=== PATIENT | male | born 1985 | race Caucasian/White ===

== ENCOUNTER 2020-07-21 12:34 | Inpatient (IN) | payer BC, OTHER ==
[2020-07-21] MEDS ORDERED: SODIUM CHLORIDE 0.9% 1,000 ML IV STA (13:22)
[2020-07-21] MEDS ORDERED: LORazepam 2 MG/ML INJ IV STA (13:22)
--- NOTE | 2020-07-21 13:25 | ED ---
General Adult HPI - General Chief complaint: Seizure Stated complaint: seizures Time Seen by Provider: 07/21/20 13:00 Source: patient, family, RN notes reviewed Mode of arrival: wheelchair Limitations: no limitations - History of Present Illness Initial comments: Patient is a pleasant 35-year-old male presenting to the emergency department following seizure. Incident occurred this morning. Patient did recently stop drinking alcohol, last drink was 2 days ago. Patient states he is trying to cut back. No history of previous seizures. Father is present and states seizures or 2 or 3 and lasted up to 15 or 20 minutes. Patient had generalized shaking and was unresponsive. Patient feels a little bit restless and shaky at this time otherwise has no complaints. Patient denies any injury other than biting his tongue. - Related Data Allergies Allergy/AdvReac Type Severity Reaction Status Date / Time No Known Allergies Allergy Verified 07/21/20 12:58 Review of Systems ROS Statement: Those systems with pertinent positive or pertinent negative responses have been documented in the HPI. ROS Other: All systems not noted in ROS Statement are negative. Constitutional: Denies: fever Eyes: Denies: eye pain ENT: Denies: ear pain Respiratory: Denies: cough Cardiovascular: Denies: chest pain Endocrine: Denies: fatigue Gastrointestinal: Denies: abdominal pain Genitourinary: Denies: dysuria Musculoskeletal: Denies: back pain Skin: Denies: rash Neurological: Reports: as per HPI. Denies: weakness Past Medical History Past Medical History: Hypertension History of Any Multi-Drug Resistant Organisms: None Reported Past Surgical History: No Surgical Hx Reported Past Psychological History: Anxiety Smoking Status: Current every day smoker Past Alcohol Use History: Daily Past Drug Use History: None Reported General Exam Limitations: no limitations General appearance: alert, in no apparent distress, other (Patient does have mild resting tremor) Head exam: Present: normocephalic Eye exam: Present: normal appearance, PERRL, EOMI. Absent: nystagmus ENT exam: Present: other (Right-sided tongue abrasions) Neck exam: Present: normal inspection. Absent: tenderness Respiratory exam: Present: normal lung sounds bilaterally Cardiovascular Exam: Present: tachycardia GI/Abdominal exam: Present: soft. Absent: tenderness Extremities exam: Present: normal inspection, full ROM. Absent: tenderness Neurological exam: Present: alert, CN II-XII intact. Absent: motor sensory deficit Expanded Neurological exam: Present: protecting the airway Patient oriented to: Present: person, place, time Speech: Present: fluid speech Cranial nerves: EOM's Intact: Normal Motor strength exam: RUE: 5, LUE: 5, RLE: 5, LLE: 5 Eye Response: (4) open spontaneously Motor Response: (6) obeys commands Verbal Response: (5) oriented Psychiatric exam: Present: normal affect, normal mood Skin exam: Present: normal color Course Vital Signs 07/21/20 12:53 Temperature 98.9 F Pulse Rate 109 H Respiratory 18 Rate Blood Pressure 126/78 O2 Sat by Pulse 97 Oximetry EKG Findings - EKG Comments: EKG Findings:: Sinus tachycardia 102. MD 126. QRS 100. QT 446. QTc 581. Normal axis. Incomplete right bundle-branch block. Nonspecific ST-T. Medical Decision Making - Medical Decision Making Patient reevaluated and updated. Dr. Mg has been paged for admission covering for Dr. jennings. - Lab Data Result diagrams: 07/21/20 13:41 07/21/20 13:41 Lab Results 07/21/20 07/21/20 Range/Units 13:41 13:41 WBC 8.1 (3.8-10.6) k/uL RBC 4.25 L (4.30-5.90) m/uL Hgb 14.4 (13.0-17.5) gm/dL Hct 40.5 (39.0-53.0) % MCV 95.2 (80.0-100.0) fL MCH 33.8 (25.0-35.0) pg MCHC 35.5 (31.0-37.0) g/dL RDW 14.2 (11.5-15.5) % Plt Count 107 L (150-450) k/uL MPV 8.7 Neutrophils % 79 % Lymphocytes % 12 % Monocytes % 4 % Eosinophils % 2 % Basophils % 2 % Neutrophils # 6.4 (1.3-7.7) k/uL Lymphocytes # 1.0 (1.0-4.8) k/uL Monocytes # 0.4 (0-1.0) k/uL Eosinophils # 0.1 (0-0.7) k/uL Basophils # 0.2 (0-0.2) k/uL Sodium 136 L (137-145) mmol/L Potassium 2.4 L* (3.5-5.1) mmol/L Chloride 102 (98-107) mmol/L Carbon Dioxide 26 (22-30) mmol/L Anion Gap 8 mmol/L BUN 5 L (9-20) mg/dL Creatinine 0.60 L (0.66-1.25) mg/dL Est GFR (CKD-EPI)AfAm >90 (>60 ml/min/1.73 sqM) Est GFR (CKD-EPI)NonAf >90 (>60 ml/min/1.73 sqM) Glucose 124 H (74-99) mg/dL Calcium 9.7 (8.4-10.2) mg/dL Magnesium 1.3 L (1.6-2.3) mg/dL Total Bilirubin 1.0 (0.2-1.3) mg/dL AST 108 H (17-59) U/L ALT 65 H (4-49) U/L Alkaline Phosphatase 100 (38-126) U/L Total Protein 6.7 (6.3-8.2) g/dL Albumin 4.2 (3.5-5.0) g/dL Serum Alcohol <10 mg/dL - Radiology Data Radiology results: report reviewed (Computed tomography scan of the brain shows no acute abnormality) Disposition Clinical Impression: New onset seizure, Hypokalemia, Hypomagnesemia Disposition: ADMITTED IP TO THIS [facility] Is patient prescribed a controlled substance at d/c from ED?: No Referrals: Mary Chacon MD [Primary Care Provider] - 1-2 days Decision Time: 14:32
[2020-07-21 13:55] LABS: Basophils # (A) 0.2 k/uL (0-0.2); Basophils % (A) 2 %; Eosinophils # (A) 0.1 k/uL (0-0.7); Eosinophils % (A) 2 %; HCT 40.5 % (39.0-53.0); HGB 14.4 gm/dL (13.0-17.5); Lymphocytes % (A) 12 %; MCH 33.8 pg (25.0-35.0); MCHC 35.5 g/dL (31.0-37.0); MCV 95.2 fL (80.0-100.0); Mean Platelet Volume 8.7; Monocytes # (A) 0.4 k/uL (0-1.0); Monocytes % (A) 4 %; Neutrophils # (A) 6.4 k/uL (1.3-7.7); Neutrophils % (A) 79 %; Platelet Count 107 k/uL (150-450); RBC 4.25 m/uL (4.30-5.90); RDW 14.2 % (11.5-15.5); WBC 8.1 k/uL (3.8-10.6)
[2020-07-21 14:06] LABS: ALT 65 U/L (4-49); AST 108 U/L (17-59); African American GFR (CKD) >90 (>60 ml/min/1.73 sqM); Albumin 4.2 g/dL (3.5-5.0); Alcohol <10 mg/dL; Alkaline Phosphatase 100 U/L (38-126); Anion Gap 8 mmol/L; Blood Urea Nitrogen 5 mg/dL (9-20); Calcium 9.7 mg/dL (8.4-10.2); Carbon Dioxide 26 mmol/L (22-30); Chloride 102 mmol/L (98-107); Glucose 124 mg/dL (74-99); Magnesium 1.3 mg/dL (1.6-2.3); Non-African American GFR(CKD) >90 (>60 ml/min/1.73 sqM); Sodium 136 mmol/L (137-145); Total Protein 6.7 g/dL (6.3-8.2)
[2020-07-21 14:08] LABS: Potassium 2.4 mmol/L (3.5-5.1)
[2020-07-21] MEDS ORDERED: MAGNESIUM SULFATE-D5W PMX 1 GM in DEXTROSE/WATER 1 100ML.BAG IVPB ONE (14:12)
[2020-07-21] MEDS ORDERED: Potassium Replacement Protocol 1 EACH MISC MISCELLANE PRN (14:13)
[2020-07-21] MEDS ORDERED: POTASSIUM CHLORIDE ER 20 MEQ TAB.ER PO STA (14:13)
[2020-07-21] MEDS ORDERED: POTASSIUM CHLORIDE 20 MEQ in WATER FOR INJECTION 1 100ML.BAG IVPB STA (14:14)
--- NOTE | 2020-07-21 14:18 | CT ---
EXAMINATION TYPE: CT brain wo con DATE OF EXAM: 07/21/2020 COMPARISON: None HISTORY: seizure activity Unenhanced CT of the brain was performed. The ventricles, basal cisterns and sulci overlying the cerebral convexities demonstrate a normal appe arance. There is no evidence for intracranial hemorrhage or sulcal effacement. No mass effects are seen. Osseous calvarium is intact. If symptoms persist consider MRI as clinically warranted. IMPRESSION: 1. No acute intracranial process is seen at this time.
[2020-07-21] MEDS: MAGNESIUM OXIDE 400 MG TAB PO SCH (14:31)
[2020-07-21] MEDS ORDERED: LORazepam 2 MG/ML INJ IV PRN (14:33)
[2020-07-21] MEDS ORDERED: NALOXONE 0.4 MG/ML 1 ML VIAL IV PRN (14:33)
[2020-07-21] MEDS: SODIUM CHLORIDE 0.9% 1,000 ML IV SCH (14:44)
[2020-07-21] MEDS: LORazepam 2 MG/ML INJ IV PRN (15:17)
[2020-07-21] MEDS: THIAMINE 100 MG TAB PO SCH (18:19)
--- NOTE | 2020-07-21 19:46 | P.CNNES ---
History of Present Illness Consult date: 07/21/20 Requesting physician: Rashawn Valadez Reason for Consult: Seizure History of Present Illness: Patient is a 35-year-old male came to the hospital today at 12:34 PM for new onset seizure. Patient states that he has history of alcoholism at least for the last 2 years that he has been drinking heavily. He would drink 4 beers to a pint of whiskey, fire ball or vodka. He was drinking almost every day for the last 2 years although previously he used to drink " here and there", "hit or miss". Patient states that lately he has been trying to cut back on his alcoholism. He had last drink about 1-2 days before his seizure. Patient also states that he was taking lot of [id number] sleeping aids, about 6-7 pills a day. Patient states that he was drinking alcohol in sleeping aids to help him sleep better. Patient was apparently asleep, when he had seizures. Patient father has mentioned that he had about 2 seizures, lasting up to 15-20 minutes. This was a grand mal seizure, in which he bit his tongue quite hard. No loss of control of urine. Patient was brought to the hospital. Vital signs arrival but pressure 126/78, pulse rate 109, temperature 98.9. CT head showed no acute process. EKG shows sinus tachycardia, incomplete right bundle branch block. Blood test shows normal Chem-7, sodium 136 potassium 2.4, renal functions normal, hepatic panel with AST elevated 108, ALT 65. Serum alcohol level negative. Patient does take hydroxyzine, amlodipine 10 mg, metoprolol 100 mg twice a day and losartan 25 mg twice a day. Patient denies any previous history of seizures. He states that he has smoked 1-1/2 pack per day since he was age 14-15 years old. He denies any drug use. He does abuse OTC sleeping aids. Review of Systems Denies headache, denies loss of vision hoarseness sore throat. His tongue is very painful from laceration. No chest pain, shortness of breath, wheezing or cough. Denies abdominal pain nausea vomiting. Patient did bruise his knee. Past Medical History Past Medical History: Hypertension History of Any Multi-Drug Resistant Organisms: None Reported Past Surgical History: No Surgical Hx Reported Past Psychological History: Anxiety Smoking Status: Current every day smoker Past Alcohol Use History: Daily Past Drug Use History: None Reported Medications and Allergies Home Medications Medication Instructions Recorded Confirmed Type Losartan Potassium [Cozaar] 25 mg PO BID 07/21/20 07/21/20 History Metoprolol Tartrate [Lopressor] 100 mg PO BID 07/21/20 07/21/20 History amLODIPine [Norvasc] 10 mg PO HS 07/21/20 07/21/20 History hydrOXYzine HCL [Atarax] 10 - 20 mg PO TID PRN 07/21/20 07/21/20 History Allergies Allergy/AdvReac Type Severity Reaction Status Date / Time No Known Allergies Allergy Verified 07/21/20 15:09 Physical Examination - Vital Signs Vital Signs: Vital Signs Temp Pulse Pulse Resp BP BP Pulse Ox 07/21/20 16:00 98.1 F 104 H 18 143/76 97 07/21/20 15:19 98.7 F 98 18 126/84 98 07/21/20 12:53 98.9 F 109 H 18 126/78 97 Intake and Output 07/21/20 07/21/20 07/21/20 06:59 14:59 22:59 Other: Weight 85.275 kg 85.275 kg On examination patient is a young male, in no acute distress. He is slightly somnolent, but did wake up. Patient is fully oriented. Speech is slightly slurred because of tongue laceration. Pupils are round and reacting to light, visual peguero are full, he has bilateral mild ptosis. Face is symmetric. Tongue protrudes the midline. Evidence of tongue laceration. Palatal elevation normal. Facial sensations normal hearing and shoulder shrug normal. Muscle strength is no drift and the strength is normal in arms and legs reflexes are 2+ and plantars downgoing. Sensory touch is equal. No ataxia for [id number] tone and bulk of muscles normal. Patient appears slightly flushed, mildly tremulous. There is no bruit or murmur, peripheral pulses present. Abdomen soft nontender, chest is clear. Results - Laboratory Findings CBC and BMP: 07/21/20 13:41 07/22/20 07:07 Abnormal Lab Findings: Abnormal Labs 07/21/20 07/21/20 13:41 13:41 RBC 4.25 L Plt Count 107 L Sodium 136 L Potassium 2.4 L* BUN 5 L Creatinine 0.60 L Glucose 124 H Magnesium 1.3 L AST 108 H ALT 65 H Assessment and Plan Assessment: * New onset seizure, likely due to alcohol withdrawal. Patient also was abusing [id number] sleeping aids. * Hypokalemia * History of alcoholism. * Tobacco use Plan: * Watch for delirium tremens. [facility] protocol. * Thiamine, folate, multivitamins. * Replace potassium. * EEG in a.m. * Urine drug screen. * No indication for antiepileptic medication treatment, unless EEG shows epileptiform activity. * Patient was informed of [place] state law of no driving unless seizure free for 6 months, climbing ladders, operate dangerous machinery or unsupervised swimming.
[2020-07-21] MEDS: LOSARTAN 25 MG TAB PO SCH (20:43)
[2020-07-21] MEDS: amLODIPine 10 MG TAB PO SCH (20:43)
[2020-07-21] MEDS: METOPROLOL TARTRATE 50 MG TAB PO SCH (20:43)
[2020-07-21] MEDS ORDERED: methylPREDNISolone SOD SUCCI 125 MG/2 ML VIAL IV STA (20:57)
[2020-07-21 21:17] LABS: Amphetamine Screen,Urine Not Detected (NotDetected); Barbiturate Screen,Urine Not Detected (NotDetected); Benzodiazepines Screen,Urine Detected (NotDetected); Cocaine Screen,Urine Not Detected (NotDetected); Methadone Screen, Urine Not Detected (NotDetected); Opiate Screen,Urine Not Detected (NotDetected); Oxycodone Screen, Urine Not Detected (NotDetected); Phencyclidine Screen,Urine Not Detected (NotDetected); Tricyclic Antidepressant,Urine Not Detected (NotDetected); Urn Cannabinoid Scrn Not Detected (NotDetected)
[2020-07-22] MEDS: SODIUM CHLORIDE 0.9% 1,000 ML IV SCH ×2 (02:20→17:07)
[2020-07-22] MEDS: THIAMINE 100 MG TAB PO SCH ×2 (06:10→17:06)
[2020-07-22 07:42] LABS: ALT 60 U/L (4-49); AST 92 U/L (17-59); African American GFR (CKD) >90 (>60 ml/min/1.73 sqM); Albumin 4.4 g/dL (3.5-5.0); Alkaline Phosphatase 98 U/L (38-126); Anion Gap 10 mmol/L; Blood Urea Nitrogen 6 mg/dL (9-20); Calcium 9.5 mg/dL (8.4-10.2); Carbon Dioxide 27 mmol/L (22-30); Chloride 99 mmol/L (98-107); Glucose 118 mg/dL (74-99); Non-African American GFR(CKD) >90 (>60 ml/min/1.73 sqM); Potassium 3.2 mmol/L (3.5-5.1); Sodium 136 mmol/L (137-145); Total Bilirubin 0.8 mg/dL (0.2-1.3); Total Protein 7.2 g/dL (6.3-8.2)
[2020-07-22] MEDS: LOSARTAN 25 MG TAB PO SCH ×2 (08:09→21:33)
[2020-07-22] MEDS: MAGNESIUM OXIDE 400 MG TAB PO SCH ×2 (08:09→21:33)
[2020-07-22] MEDS: MULTIVITAMINS, THERA 1 EACH TAB PO SCH (08:10)
[2020-07-22] MEDS: METOPROLOL TARTRATE 50 MG TAB PO SCH ×2 (08:10→21:33)
[2020-07-22] MEDS ORDERED: Potassium Replacement Protocol 1 EACH MISC MISCELLANE PRN ×3 (08:30→18:51)
[2020-07-22] MEDS: POTASSIUM CHLORIDE ER 20 MEQ TAB.ER PO SCH ×5 (09:38→23:26)
--- NOTE | 2020-07-22 10:09 | P.CRDCN ---
History of Present Illness History of present illness: HISTORY OF PRESENTING ILLNESS This is a pleasant 35-year-old male past medical history significant for hypertension, daily alcohol intake and chronic nicotine dependence. He denies prior history of coronary artery disease and does not follow in the office with a earth burner. We have been asked to see in consultation for prolonged QT. He is seen and examined sitting up in bed. He is quite anxious with pressured speech and generalized tremors. He states yesterday he was taking a nap and when he woke up his father told him he had a seizure. According to ER note he last drank 2 days prior. The seizure lasted 15-20 minutes. The patient denies prior history of seizure in the past. DIAGNOSTICS EKG reveals sinus tachycardia heart rate of 106 with an incomplete right bundle branch block and a QTc of 581 ms.. Telemetry tracings indicate persistent sinus mechanism, QTc this morning was 0.5. Brain CT negative for an acute process. Laboratory reviewed, WBC 8.1, hemoglobin 14.4, platelets 107, sodium 136, potassium on admission 2. 4 repeat today 3.2, creatinine 0.52, magnesium admission 1. 3 repeat today 2.0. Current cardiac medications include amlodipine 10 mg daily, Lopressor 100 mg twice a day and losartan 25 mg twice a day. REVIEW OF SYSTEMS At the time of my exam: CONSTITUTIONAL: Denies fever or chills. CARDIOVASCULAR: Denies chest pain, shortness of breath, orthopnea, PND or palpitations. RESPIRATORY: Denies cough. GASTROINTESTINAL: Denies abdominal pain, diarrhea, constipation, nausea or vomiting. MUSCULOSKELETAL: Denies myalgias. NEUROLOGIC: Denies numbness, tingling, headacbe or weakness. ENDOCRINE: Denies fatigue, weight change, polydipsia or polyurina. GENITOURINARY: Denies burning, hematuria or urgency with micturation. HEMATOLOGIC: Denies history of anemia or bleeding. PHYSICAL EXAMINATION Blood pressure 141/94 heart rate 108 afebrile and maintaining oxygen saturation on room air. CONSTITUTIONAL: No apparent distress. Anxious and jittery. HEENT: Head is normocephalic. Pupils are equal, round. Sclerae anicteric. Mucous membranes of the mouth are moist. No JVD. No carotid bruit. CHEST EXAMINATION: Lungs are clear to auscultation. No chest wall tenderness is noted on palpation or with deep breathing. HEART EXAMINATION: Regular rate and rhythm. S1, S2 heard. No murmurs, gallops or rub. ABDOMEN: Soft, nontender. Positive bowel sounds. EXTREMITIES: 2+ peripheral pulses, no lower extremity edema and no calf tenderness. NEUROLOGIC EXAMINATION: Patient is awake, alert and oriented x3. ASSESSMENT Seizure Prolonged QTc Hypokalemia Hypomagnesemia Daily excessive alcohol intake Chronic nicotine dependence PLAN Replace potassium. Repeat BMP and magnesium level at 1800 and in the morning. Repeat EKG at 1800 and in the morning. Obtain 2D echocardiogram and doppler study to assess cardiac structure and function. Further recommendations to follow based on clinical course. Thank you kindly for this consultation. Nurse Practitioner note has been reviewed, I agree with a documented findings and plan of care. Patient was seen and examined. Past Medical History Past Medical History: Hypertension History of Any Multi-Drug Resistant Organisms: None Reported Past Surgical History: No Surgical Hx Reported Past Psychological History: Anxiety Smoking Status: Current every day smoker Past Alcohol Use History: Daily Past Drug Use History: None Reported Medications and Allergies Home Medications Medication Instructions Recorded Confirmed Type Losartan Potassium [Cozaar] 25 mg PO BID 07/21/20 07/21/20 History Metoprolol Tartrate [Lopressor] 100 mg PO BID 07/21/20 07/21/20 History amLODIPine [Norvasc] 10 mg PO HS 07/21/20 07/21/20 History hydrOXYzine HCL [Atarax] 10 - 20 mg PO TID PRN 07/21/20 07/21/20 History Allergies Allergy/AdvReac Type Severity Reaction Status Date / Time No Known Allergies Allergy Verified 07/21/20 15:09 Physical Exam Vitals: Vital Signs Temp Pulse Pulse Resp BP BP Pulse Ox 07/22/20 08:20 108 H 18 07/22/20 07:51 98.6 F 108 H 18 141/94 96 07/22/20 03:25 98.4 F 105 H 18 143/91 94 L 07/22/20 02:00 88 18 07/21/20 23:11 97.8 F 88 18 146/96 96 07/21/20 20:00 98.1 F 88 18 146/88 98 07/21/20 16:00 98.1 F 104 H 18 143/76 97 07/21/20 15:19 98.7 F 98 18 126/84 98 07/21/20 12:53 98.9 F 109 H 18 126/78 97 Intake and Output 07/21/20 07/22/20 07/22/20 22:59 06:59 14:59 Intake Total 800 Output Total 475 Balance 325 Intake: IV 800 0.9 800 Output: Urine 475 Other: Voiding Method Toilet Toilet Toilet Urinal Urinal # Voids 1 3 Weight 85.275 kg 83 kg Results 07/21/20 13:41 07/22/20 07:07 Cardiac Enzymes 07/21/20 07/22/20 Range/Units 13:41 07:07 AST 108 H 92 H (17-59) U/L CBC 07/21/20 Range/Units 13:41 WBC 8.1 (3.8-10.6) k/uL RBC 4.25 L (4.30-5.90) m/uL Hgb 14.4 (13.0-17.5) gm/dL Hct 40.5 (39.0-53.0) % Plt Count 107 L (150-450) k/uL Comprehensive Metabolic Panel 07/21/20 07/22/20 Range/Units 13:41 07:07 Sodium 136 L 136 L (137-145) mmol/L Potassium 2.4 L* 3.2 L (3.5-5.1) mmol/L Chloride 102 99 (98-107) mmol/L Carbon Dioxide 26 27 (22-30) mmol/L BUN 5 L 6 L (9-20) mg/dL Creatinine 0.60 L 0.52 L (0.66-1.25) mg/dL Glucose 124 H 118 H (74-99) mg/dL Calcium 9.7 9.5 (8.4-10.2) mg/dL AST 108 H 92 H (17-59) U/L ALT 65 H 60 H (4-49) U/L Alkaline Phosphatase 100 98 (38-126) U/L Total Protein 6.7 7.2 (6.3-8.2) g/dL Albumin 4.2 4.4 (3.5-5.0) g/dL Current Medications Generic Name Dose Route Start Last Admin Trade Name Freq PRN Reason Stop Dose Admin Amlodipine Besylate 10 mg 07/21/20 21:00 07/21/20 20:43 Amlodipine 10 Mg Tab PO 10 mg HS ALPA Administration Sodium Chloride 1,000 mls @ 100 mls/hr 07/21/20 14:45 07/22/20 02:20 Saline 0.9% IV 100 mls/hr .Q10H ALPA Administration Lorazepam 1 mg 07/21/20 14:33 Lorazepam 2 Mg/Ml Inj IV Q2HR PRN CIWA 8 or 9 Lorazepam 1 mg 07/21/20 14:33 07/21/20 15:17 Lorazepam 2 Mg/Ml Inj IV 1 mg Q1HR PRN Administration CIWA 10 to 15 Lorazepam 2 mg 07/21/20 14:33 Lorazepam 2 Mg/Ml Inj IV 07/23/20 14:33 Q10M PRN CIWA 16 or higher Losartan Potassium 25 mg 07/21/20 21:00 07/22/20 08:09 Losartan 25 Mg Tab PO 25 mg BID ALPA Administration Magnesium Oxide 400 mg 07/21/20 21:00 07/22/20 08:09 Magnesium Oxide 400 Mg Tab PO 400 mg BID ALPA Administration Metoprolol Tartrate 100 mg 07/21/20 21:00 07/22/20 08:10 Metoprolol Tartrate 50 Mg Tab PO 100 mg BID ALPA Administration Miscellaneous Information 1 each 07/21/20 14:13 Potassium Replacement Protocol 1 Each Misc MISCELLANE DAILY PRN Per Protocol Protocol Miscellaneous Information 1 each 07/22/20 08:30 Potassium Replacement Protocol 1 Each Misc MISCELLANE DAILY PRN Per Protocol Protocol Multivitamins 1 each 07/22/20 09:00 07/22/20 08:10 Multivitamins, Thera 1 Each Tab PO 1 each DAILY ALPA Administration Naloxone HCl 0.2 mg 07/21/20 14:33 Naloxone 0.4 Mg/Ml 1 Ml Vial IV Q2M PRN Opioid Reversal Potassium Chloride 20 meq 07/22/20 09:00 07/22/20 09:38 Potassium Chloride Er 20 Meq Tab.Er PO 07/22/20 11:01 20 meq Q1HR ALPA Administration Protocol Thiamine HCl 100 mg 07/21/20 17:30 07/22/20 06:10 Thiamine 100 Mg Tab PO 100 mg BID-W/MEALS ALPA Administration Intake and Output 07/21/20 07/22/20 07/22/20 22:59 06:59 14:59 Intake Total 800 Output Total 475 Balance 325 Intake: IV 800 0.9 800 Output: Urine 475 Other: Voiding Method Toilet Toilet Toilet Urinal Urinal # Voids 1 3 Weight 85.275 kg 83 kg 07/21/20 13:41 07/22/20 07:07
--- NOTE | 2020-07-22 11:42 | ECHOF ---
Referral Reason:seizure, abn ekg MEASUREMENTS -------- HEIGHT: 172.7 cm WEIGHT: 82.6 kg BP: RVIDd: 2.8 cm (< 3.3) IVSd: 1.5 cm (0.6 - 1.1) LVIDd: 4.3 cm (3.9 - 5.3) LVPWd: 1.3 cm (0.6 - 1.1) IVSs: 1.9 cm LVIDs: 2.1 cm LVPWs: 1.9 cm LAESV Index (A-L): 14.59 ml/m Ao Diam: 2.7 cm (2.0 - 3.7) AV Cusp: 1.9 cm (1.5 - 2.6) LA Diam: 3.1 cm (2.7 - 3.8) MV EXCURSION: 19.436 mm (> 18.000) MV EF SLOPE: 118 mm/s (70 - 150) EPSS: 0.3 cm MV E James: 0.69 m/s MV DecT: 199 ms MV A James: 0.74 m/s MV E/A Ratio: 0.93 RAP: 5.00 mmHg RVSP: 11.42 mmHg FINDINGS -------- Sinus rhythm. This was a technically adequate study. The left ventricular size is normal. There is moderate concentric left ventricular hypertrophy. O verall left ventricular systolic function is normal with, an EF between 55 - 60 %. The diastolic fi lling pattern is normal for the age of the patient 9.35. The right ventricle is normal in size. Normal LA size by volume 22+/-6 ml/m2. The right atrial size is normal. Interatrial and interventricular septum intact. The aortic valve is trileaflet, and appears structurally normal. No aortic stenosis or regurgitation. The mitral valve is normal. There is trace mitral regurgitation. The tricuspid valve appears structurally normal. Trace tricuspid regurgitation present. Right velma tricular systolic pressure is normal at < 35 mmHg. There is no pulmonic regurgitation present. The aortic root size is normal. Normal inferior vena cava with normal inspiratory collapse consistent with estimated right atrial pre ssure of 5 mmHg. There is no pericardial effusion. CONCLUSIONS -------- 1. There is moderate concentric left ventricular hypertrophy. 2. Overall left ventricular systolic function is normal with, an EF between 55 - 60 %. 3. Normal LA size by volume 22+/-6 ml/m2. 4. The aortic valve is trileaflet, and appears structurally normal. No aortic stenosis or regurgitati on. 5. There is trace mitral regurgitation. 6. Trace tricuspid regurgitation present. 7. There is no pericardial effusion. PRINTER ASSISTANT: Michelle Lui RDCS
--- NOTE | 2020-07-22 14:37 | P.PN ---
Subjective Progress Note Date: 07/22/20 Patient feeling better. No further seizures. He offers no complaints. Tongue still sore. Objective - Vital Signs Vital signs: Vital Signs Temp 98.4 F 07/22/20 11:52 Pulse 90 07/22/20 11:52 Resp 18 07/22/20 11:52 BP 134/88 07/22/20 11:52 Pulse Ox 95 07/22/20 11:52 Intake & Output 07/21/20 07/22/20 07/22/20 18:59 06:59 18:59 Intake Total 800 800 Output Total 475 Balance 325 800 Weight 85.275 kg 83 kg Intake: IV 800 0.9 800 Intake, IV Titration 800 Amount Sodium Chloride 0.9% 1, 800 000 ml @ 100 mls/hr IV . Q10H ALPA Rx#:[id number] Output: Urine 475 Other: Voiding Method Toilet Toilet Urinal # Voids 3 - Exam On examination patient's mental status, speech and language function is normal. Patient appears hyperactive, hyperkinetic, slightly restless. Rest of the exam ination is nonfocal. - Labs CBC & Chem 7: 07/21/20 13:41 07/22/20 07:07 Labs: Abnormal Lab Results - Last 24 Hours (Table) 07/21/20 07/22/20 Range/Units 20:58 07:07 Sodium 136 L (137-145) mmol/L Potassium 3.2 L (3.5-5.1) mmol/L BUN 6 L (9-20) mg/dL Creatinine 0.52 L (0.66-1.25) mg/dL Glucose 118 H (74-99) mg/dL AST 92 H (17-59) U/L ALT 60 H (4-49) U/L U Benzodiazepines Scrn Detected H (NotDetected) Assessment and Plan Assessment: * New onset seizure, likely due to alcohol withdrawal. Patient also was abusing [id number] sleeping aids. * Hypokalemia * History of alcoholism. * Tobacco use Plan: * Watch for delirium tremens. [facility] protocol. * Thiamine, folate, multivitamins. * Replace potassium. * Await EEG * Urine drug screen positive only for benzodiazepine, likely given in the hospital. * No indication for antiepileptic medication treatment, unless EEG shows epileptiform activity. * Patient was informed of [place] state law of no driving unless seizure free for 6 months, climbing ladders, operate dangerous machinery or unsupervised swimming.
--- NOTE | 2020-07-22 17:57 | P.HPIM ---
History of Present Illness H&P Date: 07/22/20 Perfecto Lan, is a 35 year old male who presented to [facility] emergency room after having a seizure, patient stated that he has been trying to cut down on his alcohol use recently, he took some [id number] sleeping pills and went to sleep, his father noticed that he was having some shaking movement and was unable to wake him up, EMS were called and patient was brought into emergency room. Patient admits to heavy alcohol drinking, he stated that he drinks up to 12 beers per day but has been trying to quit recently, in the past he used to drink up to a pint of liquor daily, patient also stated that he smokes half a pack to 1 pack per day. He denies any previous history of seizures, he denies any history of stroke or head trauma. Patient has a known history of hypertension, and anxiety disorder otherwise he denies any medical or surgical history. On review of systems patient is alert and oriented at this time in no apparent distress there is no fever or chills no headache or dizziness no chest pain no shortness of breath no cough no nausea or vomiting no abdominal pain no diarrhea no blood in the stools no burning with urination no frequency or urgency and no hematuria Past Medical History Past Medical History: Hypertension History of Any Multi-Drug Resistant Organisms: None Reported Past Surgical History: No Surgical Hx Reported Past Psychological History: Anxiety Smoking Status: Current every day smoker Past Alcohol Use History: Daily Past Drug Use History: None Reported Medications and Allergies Home Medications Medication Instructions Recorded Confirmed Type Losartan Potassium [Cozaar] 25 mg PO BID 07/21/20 07/21/20 History Metoprolol Tartrate [Lopressor] 100 mg PO BID 07/21/20 07/21/20 History amLODIPine [Norvasc] 10 mg PO HS 07/21/20 07/21/20 History hydrOXYzine HCL [Atarax] 10 - 20 mg PO TID PRN 07/21/20 07/21/20 History Allergies Allergy/AdvReac Type Severity Reaction Status Date / Time No Known Allergies Allergy Verified 07/21/20 15:09 Physical Exam Vitals: Vital Signs Temp Pulse Resp BP Pulse Ox 07/22/20 16:25 98.5 F 97 20 145/82 97 07/22/20 11:52 98.4 F 90 18 134/88 95 07/22/20 08:20 108 H 18 07/22/20 07:51 98.6 F 108 H 18 141/94 96 07/22/20 03:25 98.4 F 105 H 18 143/91 94 L 07/22/20 02:00 88 18 07/21/20 23:11 97.8 F 88 18 146/96 96 07/21/20 20:00 98.1 F 88 18 146/88 98 Intake and Output 07/22/20 07/22/20 07/22/20 06:59 14:59 22:59 Intake Total 1040 360 Balance 1040 360 Intake: Intake, IV Titration 800 Amount Sodium Chloride 0.9% 1, 800 000 ml @ 100 mls/hr IV . Q10H [facility] Rx#:[id number] Oral 240 360 Other: Voiding Method Toilet Toilet Urinal # Voids 3 2 # Bowel Movements 0 Weight 83 kg In general patient is alert and oriented 3 in no apparent distress HEENT head normocephalic and atraumatic Neck is supple no JVD no goiter no lymphadenopathy Chest exam reveals a few scattered rhonchi no wheezing Cardiac exam reveals regular heart sounds S1 and S2 no gallops no murmurs Abdomen is soft nontender no organomegaly with normal bowel sounds Extremity exam reveals no edema no cyanosis or clubbing Neurological examination reveals, no gross focal neurological deficit Results CBC & Chem 7: 07/21/20 13:41 07/22/20 07:07 Labs: Abnormal Lab Results - Last 24 Hours (Table) 07/21/20 07/22/20 Range/Units 20:58 07:07 Sodium 136 L (137-145) mmol/L Potassium 3.2 L (3.5-5.1) mmol/L BUN 6 L (9-20) mg/dL Creatinine 0.52 L (0.66-1.25) mg/dL Glucose 118 H (74-99) mg/dL AST 92 H (17-59) U/L ALT 60 H (4-49) U/L U Benzodiazepines Scrn Detected H (NotDetected) Assessment and Plan Plan: 1. New onset seizure, was 1 witnessed grand mal seizure 2. Severe hypokalemia 3. Underlying history of excessive alcohol use, with alcohol withdrawal as patient is trying to quit drinking 4. Tobacco use patient was counseled to quit smoking 5. Underlying history of hypertension At this time patient is admitted to telemetry floor He is maintained on CIWA protocol with Ativan Home medication for blood pressure including metoprolol and amlodipine were restarted Neurology following EEG ordered Will follow in a.m.
[2020-07-22 18:49] LABS: African American GFR (CKD) >90 (>60 ml/min/1.73 sqM); Anion Gap 6 mmol/L; Blood Urea Nitrogen 15 mg/dL (9-20); Calcium 8.9 mg/dL (8.4-10.2); Carbon Dioxide 26 mmol/L (22-30); Chloride 106 mmol/L (98-107); Glucose 118 mg/dL (74-99); Non-African American GFR(CKD) >90 (>60 ml/min/1.73 sqM); Potassium 2.9 mmol/L (3.5-5.1); Sodium 138 mmol/L (137-145)
[2020-07-22] MEDS ORDERED: MELATONIN 5 MG TABLET PO ONE (20:27)
[2020-07-22] MEDS: amLODIPine 10 MG TAB PO SCH (21:33)
[2020-07-22] MEDS: LORazepam 2 MG/ML INJ IV PRN (23:26)
[2020-07-23] MEDS: POTASSIUM CHLORIDE ER 20 MEQ TAB.ER PO SCH ×3 (00:23→11:27)
[2020-07-23] MEDS: LORazepam 2 MG/ML INJ IV PRN ×3 (01:18→02:07)
[2020-07-23] MEDS: HALOPERIDOL LACTATE 5 MG/ML 1 ML VIAL IM PRN ×2 (01:31→11:28)
[2020-07-23] MEDS: SODIUM CHLORIDE 0.9% 1,000 ML IV SCH ×3 (02:35→09:01)
--- NOTE | 2020-07-23 05:59 | CONS ---
CONSULTATION DATE OF SERVICE: 07/22/2020 REASON FOR CONSULTATION: Tongue laceration. HISTORY OF PRESENT ILLNESS: This patient is a 35-year-old male who was admitted to [facility] via the emergency room after having been diagnosed as having had a seizure. During the seizure, the patient bit his tongue. He was evaluated in emergency room and it was decided to admit him for further definitive treatment. The patient states that he does not have any previous history of seizures. He states that on the evening prior to going to the emergency room, he had been drinking rather heavily in an attempt to fall asleep. After this failed, he also took a sleeping pill. At some point, the patient states that he was awakened and subsequently developed seizure activity and was taken to the emergency room. He states that he smokes approximately 1 pack+ of cigarettes daily and he has been advised to quit for obvious health reasons. ALLERGIES: Reveals he has no known allergies to medications. MEDICATIONS: Current medications include Atarax, Norvasc, Lopressor, Cozaar. REVIEW OF SYSTEMS: Cardiovascular system is positive for hypertension/cardiovascular disease. Respiratory is negative. Gastrointestinal is negative. The remainder of the review of systems is essentially unremarkable. EXAMINATION: This patient is a 35-year-old male who was alert and cooperative and appears to be slightly older than his stated age. HEENT: Examination, patient is normocephalic. Tympanic membranes are normal. Middle ear space is free of any fluid or infection. Pupils equal, round, react to light and accommodation. Extraocular movements within normal limits. Intranasal examination reveals moderate to severe septal deviation with compensatory hypertrophy of the inferior turbinates. Mild amount of mucus on the mucous membranes and draining down the posterior pharynx. Examination of oropharynx reveals the patient has an approximately 2 cm. laceration of the right sai-lateral border of the tongue. The area appears to be granulating in nicely. There is minimal swelling of the tongue at this time and definitely no evidence of any significant swelling to cause any airway obstruction. No other suspicious lesions are noted elsewhere in the mouth. Palpation of the neck, remainder of the head neck exam including cranial nerves 2 through 12 are within normal limits. CHEST/CARDIOVASCULAR: Both lung peguero have scattered wheezes/rhonchi. The patient is in regular sinus rhythm, S1, S2 are present. No murmurs S3s or S4s. Peripheral pulses are bilaterally symmetrical. ABDOMEN: There is no any masses, megaly or tenderness. The abdomen is soft. SKIN: Unremarkable. Musculoskeletal, neurological and the remainder of physical exam is essentially unremarkable. IMPRESSION: A 2 cm anterior laceration of the tongue. PLAN: At this point, nothing needs to be done. Certainly, any attempt to suture this area will be met with failure because the tongue is simply a sack of muscles and is quite active and would probably rupture any type of sutures that could be placed. In addition to this, it is not necessary to suture these areas because they tend to heal quite nicely without any intervention. Unfortunately, this gentleman is an alcoholic and he should be directed towards some type of treatment to prevent further similar episodes. I cautioned him against mixing alcohol and any type of sedative/sleeping pill or narcotic. From an ENT standpoint, this patient can be discharged home at any time and he will not need to be seen in my office for followup. I expect his tongue to heal quite nicely. If you would like to discharge him on an oral antibiotic such as Keflex for 7-10 days, that should be okay, but it is certainly not necessary because the area will heal without any type of treatment. I want to take this opportunity to thank you for allowing me to assist in the care of your patient. If I can be of any further assistance, please feel free to call my office. KERI / AQUILES: [id number] / NENO
[2020-07-23] MEDS: THIAMINE 100 MG TAB PO SCH ×2 (07:11→11:26)
[2020-07-23 07:55] LABS: ALT 93 U/L (4-49); AST 159 U/L (17-59); African American GFR (CKD) >90 (>60 ml/min/1.73 sqM); Albumin 4.1 g/dL (3.5-5.0); Alkaline Phosphatase 107 U/L (38-126); Anion Gap 6 mmol/L; Blood Urea Nitrogen 11 mg/dL (9-20); Calcium 9.1 mg/dL (8.4-10.2); Carbon Dioxide 27 mmol/L (22-30); Chloride 105 mmol/L (98-107); Glucose 98 mg/dL (74-99); Non-African American GFR(CKD) >90 (>60 ml/min/1.73 sqM); Potassium 3.1 mmol/L (3.5-5.1); Sodium 138 mmol/L (137-145); Total Bilirubin 0.8 mg/dL (0.2-1.3); Total Protein 6.9 g/dL (6.3-8.2)
[2020-07-23 08:05] LABS: Basophils # (A) 0.1 k/uL (0-0.2); Basophils % (A) 1 %; Eosinophils # (A) 0.1 k/uL (0-0.7); Eosinophils % (A) 2 %; HCT 41.6 % (39.0-53.0); HGB 14.4 gm/dL (13.0-17.5); Lymphocytes # (A) 1.9 k/uL (1.0-4.8); Lymphocytes % (A) 27 %; MCH 33.7 pg (25.0-35.0); MCHC 34.6 g/dL (31.0-37.0); MCV 97.5 fL (80.0-100.0); Mean Platelet Volume 8.2; Monocytes # (A) 0.6 k/uL (0-1.0); Monocytes % (A) 8 %; Neutrophils # (A) 4.2 k/uL (1.3-7.7); Neutrophils % (A) 60 %; Platelet Count 158 k/uL (150-450); RBC 4.26 m/uL (4.30-5.90); RDW 14.4 % (11.5-15.5)
--- NOTE | 2020-07-23 10:36 | EEG ---
ELECTROENCEPHALOGRAM REPORT DATE OF SERVICE: 07/22/2020. PREAMBLE: This is a 35-year-old male with new onset seizures. This study is performed to evaluate for any epileptiform activity. EEG FINDINGS: This is a 21 channel routine EEG recording in a patient utilizing 10/20 international system with referential and bipolar montages. The background consists of well developed, well regulated, moderate voltage activity in 10-11 hertz alpha. Background is posterior dominant and reactive to eye opening and closing. Photic driving response was not seen. Different stages of sleep were not seen. No focal or generalized epileptiform activity was seen. IMPRESSION: This is a normal awake EEG. No focal, lateralized, or epileptiform activity was seen. MMODL / IJN: [id number] /
[2020-07-23] MEDS: METOPROLOL TARTRATE 50 MG TAB PO SCH ×2 (11:22→21:00)
[2020-07-23] MEDS: MAGNESIUM OXIDE 400 MG TAB PO SCH ×2 (11:23→21:00)
[2020-07-23] MEDS: LOSARTAN 25 MG TAB PO SCH ×2 (11:23→21:00)
[2020-07-23] MEDS: MULTIVITAMINS, THERA 1 EACH TAB PO SCH (11:23)
--- NOTE | 2020-07-23 12:18 | P.PN ---
Subjective Progress Note Date: 07/23/20 Perfecto Lan, is a 35 year old male who presented to [facility] emergency room after having a seizure, patient stated that he has been trying to cut down on his alcohol use recently, he took some zfdq-wyp-zisryvd sleeping pills and went to sleep, his father noticed that he was having some shaking movement and was unable to wake him up, EMS were called and patient was brought into emergency room. Patient admits to heavy alcohol drinking, he stated that he drinks up to 12 beers per day but has been trying to quit recently, in the past he used to drink up to a pint of liquor daily, patient also stated that he smokes half a pack to 1 pack per day. He denies any previous history of seizures, he denies any history of stroke or head trauma. Patient has a known history of hypertension, and anxiety disorder otherwise he denies any medical or surgical history. On review of systems patient is alert and oriented at this time in no apparent distress there is no fever or chills no headache or dizziness no chest pain no shortness of breath no cough no nausea or vomiting no abdominal pain no diarrhea no blood in the stools no burning with urination no frequency or urgency and no hematuria On 07/23/2020 patient is currently resting in bed currently in restraints. Per nursing staff patient had increased agitation throughout the night requiring 4 point leather restraints. Reportedly patient got more agitated after administration of Ativan for alcohol withdrawal. Patient was then given Haldol with improvement behavior. Patient's potassium this a.m. 3.1 replace per prot ocol. Psychiatry services have been ordered. Neurology and cardiology services following. EEG has been ordered Objective - Vital Signs Vital signs: Vital Signs Temp 98.1 F 07/23/20 11:19 Pulse 127 H 07/23/20 11:19 Resp 18 07/23/20 11:19 BP 166/95 07/23/20 11:19 Pulse Ox 95 07/23/20 11:19 Intake & Output 07/22/20 07/23/20 07/23/20 18:59 06:59 18:59 Intake Total 1400 120 240 Balance 1400 120 240 Weight 89.5 kg Intake: Intake, IV Titration 800 Amount Sodium Chloride 0.9% 1, 800 000 ml @ 100 mls/hr IV . Q10H [facility] Rx#:[id number] Oral 600 120 240 Other: Voiding Method Toilet Urinal # Voids 2 2 1 # Bowel Movements 0 0 - Exam In general patient is alert and oriented 3 in no apparent distress HEENT head normocephalic and atraumatic Neck is supple no JVD no goiter no lymphadenopathy Chest exam reveals a few scattered rhonchi no wheezing Cardiac exam reveals regular heart sounds S1 and S2 no gallops no murmurs Abdomen is soft nontender no organomegaly with normal bowel sounds Extremity exam reveals no edema no cyanosis or clubbing Neurological examination reveals, no gross focal neurological deficit - Labs CBC & Chem 7: 07/23/20 07:02 07/23/20 07:02 Labs: Abnormal Lab Results - Last 24 Hours (Table) 07/22/20 07/23/20 07/23/20 Range/Units 18:01 07:02 07:02 RBC 4.26 L (4.30-5.90) m/uL Potassium 2.9 L 3.1 L (3.5-5.1) mmol/L Creatinine 0.63 L 0.49 L (0.66-1.25) mg/dL Glucose 118 H (74-99) mg/dL AST 159 H (17-59) U/L ALT 93 H (4-49) U/L Assessment and Plan Plan: 1. New onset seizure, was 1 witnessed grand mal seizure. EEG has been ordered. Neurology service is consulted 2. Severe hypokalemia 3. Underlying history of excessive alcohol use, with alcohol withdrawal as patient is trying to quit drinking 4. Tobacco use patient was counseled to quit smoking 5. Underlying history of hypertension 6. Increased agitation. Haldol added when necessary. Psychiatry service is consulted 7. Tongue laceration. Patient was evaluated by ENT with no further intervention recommended at this point At this time patient is admitted to telemetry floor He is maintained on CIWA protocol with Ativan Home medication for blood pressure including metoprolol and amlodipine were restarted Neurology, cardiology, psychiatry and ENT consulted Haldol added for increased agitation
--- NOTE | 2020-07-23 13:06 | P.PN ---
Subjective HISTORY OF PRESENTING ILLNESS This is a pleasant 35-year-old male past medical history significant for hypertension, daily alcohol intake and chronic nicotine dependence. He denies prior history of coronary artery disease and does not follow in the office with a staff electronic warfare officer. He is seen and examined resting comfortably in no acute distress. Repeat EKG and ongoing telemetry tracings reveal improvement in QTc. Laboratory data reviewed, CBC unremarkable, sodium 138, potassium 3.1, magnesium 2.0 and creatinine 0.49. Blood pressure 166/95 heart rate 80 on the monitor. Echocardiogram obtained reveals preserved LV systolic function with ejection fraction 55-60%. PHYSICAL EXAMINATION CONSTITUTIONAL: No apparent distress. Anxious and jittery. HEENT: Head is normocephalic. Pupils are equal, round. Sclerae anicteric. Mucous membranes of the mouth are moist. No JVD. No carotid bruit. CHEST EXAMINATION: Lungs are clear to auscultation. No chest wall tenderness is noted on palpation or with deep breathing. HEART EXAMINATION: Regular rate and rhythm. S1, S2 heard. No murmurs, gallops or rub. EXTREMITIES: 2+ peripheral pulses, no lower extremity edema and no calf tenderness. ASSESSMENT Seizure Prolonged QTc Sinus tachycardia Hypokalemia Hypomagnesemia Daily excessive alcohol intake Chronic nicotine dependence PLAN Continue to replace potassium per protocol. Stable from a cardiac perspective. Sinus tachycardia likely related to underlying alcohol withdrawal. No further cardiac workup at this time. We will follow along as needed, please feel free to call with further questions or concerns. Nurse Practitioner note has been reviewed, I agree with a documented findings and plan of care. Patient was seen and examined. Objective - Vital Signs Vital signs: Vital Signs Temp 98.1 F 07/23/20 11:19 Pulse 127 H 07/23/20 11:19 Resp 18 07/23/20 11:19 BP 166/95 07/23/20 11:19 Pulse Ox 95 07/23/20 11:19 Intake & Output 07/22/20 07/23/20 07/23/20 18:59 06:59 18:59 Intake Total 1400 120 240 Balance 1400 120 240 Weight 89.5 kg Intake: Intake, IV Titration 800 Amount Sodium Chloride 0.9% 1, 800 000 ml @ 100 mls/hr IV . Q10H [facility] Rx#:[id number] Oral 600 120 240 Other: Voiding Method Toilet Urinal # Voids 2 2 1 # Bowel Movements 0 0 - Labs CBC & Chem 7: 07/23/20 07:02 07/23/20 07:02 Labs: Abnormal Lab Results - Last 24 Hours (Table) 07/22/20 07/23/20 07/23/20 Range/Units 18:01 07:02 07:02 RBC 4.26 L (4.30-5.90) m/uL Potassium 2.9 L 3.1 L (3.5-5.1) mmol/L Creatinine 0.63 L 0.49 L (0.66-1.25) mg/dL Glucose 118 H (74-99) mg/dL AST 159 H (17-59) U/L ALT 93 H (4-49) U/L
--- NOTE | 2020-07-23 13:30 | P.PN ---
Subjective Progress Note Date: 07/23/20 Patient feeling better. No further seizures. Patient is now on 2 points restrained, as he was agitated last night. He offers no complaints. Tongue still sore. Objective - Vital Signs Vital signs: Vital Signs Temp 98.1 F 07/23/20 11:19 Pulse 127 H 07/23/20 11:19 Resp 18 07/23/20 11:19 BP 166/95 07/23/20 11:19 Pulse Ox 95 07/23/20 11:19 Intake & Output 07/22/20 07/23/20 07/23/20 18:59 06:59 18:59 Intake Total 1400 120 240 Balance 1400 120 240 Weight 89.5 kg Intake: Intake, IV Titration 800 Amount Sodium Chloride 0.9% 1, 800 000 ml @ 100 mls/hr IV . Q10H [facility] Rx#:[id number] Oral 600 120 240 Other: Voiding Method Toilet Urinal # Voids 2 2 1 # Bowel Movements 0 0 - Exam On examination patient's mental status, speech and language function is normal. Patient appears hyperactive, hyperkinetic, slightly restless. Patient on 2 points restrain. - Labs CBC & Chem 7: 07/23/20 07:02 07/23/20 07:02 Labs: Abnormal Lab Results - Last 24 Hours (Table) 07/22/20 07/23/20 07/23/20 Range/Units 18:01 07:02 07:02 RBC 4.26 L (4.30-5.90) m/uL Potassium 2.9 L 3.1 L (3.5-5.1) mmol/L Creatinine 0.63 L 0.49 L (0.66-1.25) mg/dL Glucose 118 H (74-99) mg/dL AST 159 H (17-59) U/L ALT 93 H (4-49) U/L Assessment and Plan Assessment: * New onset seizure, likely due to alcohol withdrawal. Patient also was abusing wvvr-qaz-exsagsz sleeping aids. * Delirium tremens. * Hypokalemia * History of alcoholism. * Elevated liver enzymes, likely due to alcoholism. * Tobacco use Plan: * Continue CIAR protocol. * Thiamine, folate, multivitamins. * Potassium still low 3.1. Replacement of potassium as per IM. * EEG was normal. * Urine drug screen positive only for benzodiazepine, likely given in the hospital. * No indication for antiepileptic medication treatment, unless EEG shows epileptiform activity. * Patient was informed of [place] state law of no driving unless seizure free for 6 months, climbing ladders, operate dangerous machinery or unsupervised swimming.
--- NOTE | 2020-07-23 14:43 | P.CN ---
Psychiatric Consult - . Consult date: 07/23/20 Consult:: IDENTIFYING DATA: This patient is a unemployed, engaged, 35-year-old male who was admitted for seizure. HISTORY OF PRESENT ILLNESS: The patient presented to the hospital on 07/21/2020 after experiencing a seizure. The patient reported last drinking alcohol 2 days prior to his presentation at the emergency department. Furthermore, the patient was taking dxcx-edb-rzeqced sleep medications such as Advil PM and may have taken more than the recommended dose. As reported by the patient's father, the patient had seizures that lasted up to 15 or 20 minutes. He was noted to be unresponsive with generalized shaking. Tongue biting was evident. Over the course of the hospital stay, the patient has been combative and hallucinating. The patient has had significant runs of tachycardia and an EKG revealed a prolonged QTc of 581 ms. The patient was on soft restraints and had 2 episodes of Mr. rg called on him. He broke out of his soft restraints is now currently on 2.1 to restraints. Currently the patient appears to be somewhat disorganized. He is alert and oriented to person and is able to identify the city but not the type of building we are currently in. He does not recall being agitated. He is currently not reporting any suicidal or homicidal ideation, intention, and/or plan. He is not reporting any auditory or visual hallucinations. He is denying any paranoia or delusions at this time. The patient reports that prior to this admission he was drinking upwards of a pint of liquor per day. He reports he is smoking about 1 pack per day. He denies any marijuana or illicit drug use. PAST PSYCHIATRIC HISTORY: Patient denies any psychiatric history. Patient denies being on any psychiatric medications. Patient denies any previous psychiatric hospitalizations. Patient denies any psychiatric outpatient follow-up. Patient denies any history of suicide attempts in the past. PAST MEDICAL HISTORY: Hypertension ALLERGIES: NO KNOWN DRUG ALLERGIES CHEMICAL DEPENDENCY HISTORY: as per HPI. FAMILY PSYCHIATRIC/SUBSTANCE USE HISTORY: Patient denies any family psychiatric or substance abuse history. SOCIAL HISTORY: Patient was born and raised in [place], [place]. He is the youngest of 2 children. He is currently unemployed. He isn't currently engaged with his fireid Dumont whom he has been with for the last 2 years. He currently lives with his fiance and her father. He denies any legal issues at the moment. He reports no history. MENTAL STATUS EXAM: General Appearance: Patient appears to be stated age is alert, disorganized but cooperative. Patient appears to be disheveled and is currently shirtless but wearing hospital pants. He is currently in 2-point leather restraints. Behavior: Psychomotor activity appears to be elevated. Otherwise the patient is calmly lying down in bed. Eye contact is appropriate. Speech: Patient's speech is fluent and nonpressured. Mood/Affect: Patient reports their mood is "okay", affect is odd and disorganized/confused. Suicidality/Homicidality: Patient denies having any suicidal or homicidal ideation intent or plan. Perceptions: Patient denies any visual hallucinations and denies any auditory hallucinations Though content/process: Patient seems somewhat disorganized at this time. Memory and concentration: Alert and oriented to self mainly, concentration although poor grossly intact for the purposes of this session. Judgment and insight: poor IMPRESSIONS: New onset seizure disorder, likely secondary to Alcohol withdrawal Delirium tremens QTc prolongation PLAN: -At this time patient DOES NOT meet criteria for inpatient psychiatric admission. -Would recommend the following medication changes/additions: We will order Librium 25 mg by mouth 3 times a day to help address alcohol withdrawal and will gradually taper in response to treatment. Currently at this time, we will hold antipsychotic medications due to his QTC prolongation. We will recheck tomorrow and if corrected we can place orders for antipsychotic medications. -Counseled patient on alcohol abuse and recommended inpatient rehab. Patient is currently somewhat disorganized and unable to appreciate all that is told to him at this time. -Will continue to follow along 07/23/20 14:30
[2020-07-23] MEDS ORDERED: SODIUM CHLORIDE 0.9% 1,000 ML IV STA (16:55)
[2020-07-23] MEDS: chlordiazePOXIDE 25 MG CAP PO SCH ×2 (17:20→21:00)
[2020-07-23] MEDS: amLODIPine 10 MG TAB PO SCH (21:00)
[2020-07-24] MEDS: SODIUM CHLORIDE 0.9% 1,000 ML IV SCH (06:11)
[2020-07-24] MEDS: THIAMINE 100 MG TAB PO SCH (06:11)
[2020-07-24 07:40] LABS: Basophils # (A) 0.1 k/uL (0-0.2); Basophils % (A) 2 %; Eosinophils # (A) 0.2 k/uL (0-0.7); Eosinophils % (A) 3 %; HCT 41.4 % (39.0-53.0); HGB 14.4 gm/dL (13.0-17.5); Lymphocytes # (A) 1.5 k/uL (1.0-4.8); Lymphocytes % (A) 28 %; MCH 34.1 pg (25.0-35.0); MCHC 34.9 g/dL (31.0-37.0); MCV 97.8 fL (80.0-100.0); Mean Platelet Volume 8.3; Monocytes # (A) 0.6 k/uL (0-1.0); Monocytes % (A) 11 %; Neutrophils % (A) 54 %; Platelet Count 230 k/uL (150-450); RBC 4.23 m/uL (4.30-5.90); RDW 14.1 % (11.5-15.5); WBC 5.5 k/uL (3.8-10.6)
[2020-07-24 07:57] LABS: ALT 88 U/L (4-49); AST 103 U/L (17-59); African American GFR (CKD) >90 (>60 ml/min/1.73 sqM); Albumin 3.9 g/dL (3.5-5.0); Alkaline Phosphatase 88 U/L (38-126); Anion Gap 9 mmol/L; Blood Urea Nitrogen 13 mg/dL (9-20); Calcium 9.5 mg/dL (8.4-10.2); Carbon Dioxide 21 mmol/L (22-30); Chloride 106 mmol/L (98-107); Glucose 109 mg/dL (74-99); Magnesium 1.9 mg/dL (1.6-2.3); Non-African American GFR(CKD) >90 (>60 ml/min/1.73 sqM); Potassium 3.5 mmol/L (3.5-5.1); Sodium 136 mmol/L (137-145); Total Bilirubin 0.6 mg/dL (0.2-1.3); Total Protein 6.6 g/dL (6.3-8.2)
[2020-07-24] MEDS: METOPROLOL TARTRATE 50 MG TAB PO SCH (09:06)
[2020-07-24] MEDS: chlordiazePOXIDE 25 MG CAP PO SCH (09:06)
[2020-07-24] MEDS: MAGNESIUM OXIDE 400 MG TAB PO SCH (09:06)
[2020-07-24] MEDS: MULTIVITAMINS, THERA 1 EACH TAB PO SCH (09:06)
[2020-07-24] MEDS: LOSARTAN 25 MG TAB PO SCH (09:06)
[2020-07-24 12:44] VITALS: TEMP 98.3
--- NOTE | 2020-07-24 13:02 | P.PN ---
Progress Note - Text Progress Note Date: 07/24/20 Interval History: Patient was seen resting in bed and was agreeable to speak with this publications writer. Currently the patient's point that he is feeling much better. He is not reporting any suicidal or homicidal ideation, intention, and/or plan. He is not reporting any auditory or visual hallucinations. He reports that his withdrawal symptoms have greatly abated. He is not reporting any chest pain, palpitations, nausea, or tremors. He reports that he was able to sleep well last night. He is now off restraints. He is calm and cooperative. He is alert and oriented in all spheres. Mental Status Exam: General Appearance: Patient appears to be stated age is alert, directable, and cooperative. Hygiene and grooming are improved. Behavior: Patient is calmly seated without any agitated behavior. Speech: Patient's speech is fluent and nonpressured. Mood/Affect: Mood is feeling much better, affect is congruent and euthymic to bright. Suicidality/Homicidality: Patient denies any suicidal or homicidal ideation, intention, and/or plan. Perceptions: Patient denies any auditory or visual hallucinations. Though content/process: There is no evidence of any delusional thought content and thought process is linear and goal-directed. Memory and concentration: AOX3, grossly intact for the purposes of this session Judgment and insight: Good Assessment New onset seizure disorder, likely secondary to Alcohol withdrawal, resolving Delirium tremens, resolved QTc prolongation Plan: -At this time patient DOES NOT meet criteria for inpatient psychiatric admission. -Patient is cleared psychiatrically. -Would recommend the following medication changes/additions: Decrease Librium to 25 mg by mouth twice a day and discontinue the medication tomorrow. We'll not start any antipsychotic medication. -Continue to debt counselor patient on abstaining from alcohol. -Psychiatry will sign off at this time. Thank you for this consult.
[2020-07-24 15:14] VITALS: BP 150/98; PULSE 92; RESP 16
[2020-07-24] MEDS ORDERED: chlordiazePOXIDE 25 MG CAP PO SCH (21:00)
--- NOTE | 2020-07-24 21:08 | P.PN ---
Subjective Progress Note Date: 07/24/20 Patient feeling much better. No further seizures. Patient is off restraints. He is sitting in the bed, fully alert and awake. Does not appear as restless, hyperalert. Affect appears normal. Objective - Vital Signs Vital signs: Vital Signs Temp 98.3 F 07/24/20 12:00 Pulse 92 07/24/20 15:11 Resp 16 07/24/20 15:11 BP 150/98 07/24/20 15:11 Pulse Ox 96 07/24/20 15:11 Intake & Output 07/24/20 07/24/20 07/25/20 06:59 18:59 06:59 Intake Total 1395 Balance 1395 Weight 83.8 kg Intake: Intake, IV Titration 75 Amount Sodium Chloride 0.9% 1, 75 000 ml @ 75 mls/hr IV . [id number] STA Rx#:[id number] Oral 1320 Other: Voiding Method Urinal Urinal # Voids 1 - Exam On examination patient's mental status, speech and language function is normal. Muscle strength is normal. Patient is overweight withdrawals. Ptosis has resolved. - Labs CBC & Chem 7: 07/24/20 07:08 07/24/20 07:08 Labs: Abnormal Lab Results - Last 24 Hours (Table) 07/24/20 07/24/20 Range/Units 07:08 07:08 RBC 4.23 L (4.30-5.90) m/uL Sodium 136 L (137-145) mmol/L Carbon Dioxide 21 L (22-30) mmol/L Creatinine 0.51 L (0.66-1.25) mg/dL Glucose 109 H (74-99) mg/dL AST 103 H (17-59) U/L ALT 88 H (4-49) U/L Assessment and Plan Assessment: * New onset seizure, likely due to alcohol withdrawal. Patient also was abusing [id number] sleeping aids. * Delirium tremens, now resolved. * Hypokalemia * History of alcoholism. * Elevated liver enzymes, improving, likely due to alcoholism. * Tobacco use Plan: * Patient is doing much better. Delirium tremens have resolved. * Thiamine, folate, multivitamins. * Potassium normal 3.5. * EEG was normal. * Urine drug screen positive only for benzodiazepine, likely given in the hospital. * No indication for antiepileptic medication treatment. Patient recommended to abstain from substance abuse including alcohol. * Patient was informed of [place] state law of no driving unless seizure free for 6 months, climbing ladders, operate dangerous machinery or unsupervised swimming.
== END 2020-07-24 17:02 | disposition home or self-care (01) | DRG 101 ==
LOC: EC 12:34 → 3SCARD 14:33
PROVIDERS: ADMIT Internal Medicine; ATTEND Internal Medicine
DX: G40.409 Other generalized epilepsy and epileptic syndromes, not intractable, without status epilepticus (principal); F10.231 Alcohol dependence with withdrawal delirium; E83.42 Hypomagnesemia; E87.6 Hypokalemia; F17.210 Nicotine dependence, cigarettes, uncomplicated; Z71.6 Tobacco abuse counseling; F41.9 Anxiety disorder, unspecified; I10 Essential (primary) hypertension; I45.10 Unspecified right bundle-branch block; S01.512A Laceration without foreign body of oral cavity, initial encounter; Z78.1 Physical restraint status; Z79.899 Other long term (current) drug therapy; R94.31 Abnormal electrocardiogram [ECG] [EKG]; Z56.0 Unemployment, unspecified; F13.10 Sedative, hypnotic or anxiolytic abuse, uncomplicated
CPT/HCPCS: 36415; 70450; 80048; 80053; 80143; 80306; 80320; 83735; 85025; 93005; 93306; 95816; 96361; 96365; 96367; 96375; 96376; 99285

== ENCOUNTER 2022-09-26 16:03 | Inpatient (IN) | payer OTHER ==
[2022-09-26] MEDS ORDERED: SODIUM CHLORIDE 0.9% 1,000 ML IV STA ×2 (16:24)
[2022-09-26] MEDS ORDERED: SODIUM CHLORIDE 0.9% 500 ML 500 ML IV STA (16:24)
--- NOTE | 2022-09-26 16:26 | ED ---
Alcohol HPI - General Chief Complaint: Nausea/Vomiting/Diarrhea Stated Complaint: bloody diarrhea Time Seen by Provider: 09/26/22 16:07 Source: patient, EMS, RN notes reviewed, old records reviewed Mode of arrival: EMS Limitations: altered mental status, physical limitation - History of Present Illness Initial Comments: This is a 37-year-old male to the ED for evaluation patient is a poor historian secondary to clinical condition likely intoxication. MD Complaint: alcohol intoxication Last Drink: unknown -: days(s) Previous Visits for Alcohol Intoxication?: Yes Recent Trauma: Yes Associated Symptoms: nausea, vomiting Treatments Prior to Arrival: none Chronic Alcohol Use: Yes - Related Data Home Medications Medication Instructions Recorded Confirmed Losartan Potassium [Cozaar] 25 mg PO BID 07/21/20 09/26/22 Metoprolol Tartrate [Lopressor] 100 mg PO BID 07/21/20 09/26/22 Allergies Allergy/AdvReac Type Severity Reaction Status Date / Time No Known Allergies Allergy Verified 09/26/22 18:40 Review of Systems ROS Statement: Those systems with pertinent positive or pertinent negative responses have been documented in the HPI. ROS Other: All systems not noted in ROS Statement are negative. Past Medical History Past Medical History: Hypertension History of Any Multi-Drug Resistant Organisms: None Reported Past Surgical History: No Surgical Hx Reported Past Psychological History: Anxiety Smoking Status: Current every day smoker Past Alcohol Use History: Daily, Heavy Past Drug Use History: None Reported General Exam Limitations: no limitations General appearance: alert, appears intoxicated, anxious, lethargic, in distress Head exam: Present: atraumatic, normocephalic, normal inspection Eye exam: Present: normal appearance, PERRL, EOMI. Absent: scleral icterus, conjunctival injection, periorbital swelling ENT exam: Present: normal exam, mucous membranes dry, mucous membranes moist Neck exam: Present: normal inspection. Absent: tenderness, meningismus, lymphadenopathy Respiratory exam: Present: normal lung sounds bilaterally. Absent: respiratory distress, wheezes, rales, rhonchi, stridor Cardiovascular Exam: Present: normal rhythm, tachycardia, normal heart sounds. Absent: systolic murmur, diastolic murmur, rubs, gallop, clicks GI/Abdominal exam: Present: soft, normal bowel sounds. Absent: distended, tenderness, guarding, rebound, rigid Extremities exam: Present: normal inspection, full ROM, normal capillary refill. Absent: tenderness, pedal edema, joint swelling, calf tenderness Back exam: Present: normal inspection Neurological exam: Present: alert, oriented X3, CN II-XII intact Psychiatric exam: Present: normal affect, normal mood Skin exam: Present: warm, dry, intact, normal color. Absent: rash Course Vital Signs 09/26/22 16:06 Temperature 97.1 F L Pulse Rate 122 H Respiratory 24 Rate Blood Pressure 134/74 O2 Sat by Pulse 95 Oximetry - Reevaluation(s) Reevaluation #1: 09/26/22 17:08 Medical record is reviewed Reevaluation #2: 09/26/22 17:08 Patient has no improvement here in the ER Reevaluation #3: 09/26/22 17:08 Patient informed results, unable to understand need for admission Reevaluation #4: 09/26/22 17:08 Was pt. sent in by a medical professional or institution? @ -no Did you speak to anyone other than the patient for history? @ -no Did you review nursing and triage notes? @ -agree Were old charts reviewed? @ -yes prior ED visits Differential Diagnosis? @ -ams EKG interpreted by me (3pts min.)? @ -yes X-rays interpreted by me (1pt min.)? @ -no CT interpreted by me (1pt min.)? @ -no U/S interpreted by me (1pt. min.)? @ -no What testing was considered but not performed? (CT, X-rays, U/S, labs)? Why? @ -no What meds were considered but not given? Why? @ -[none] Did you discuss the management of the patient with other professionals? @ --no Did you reconcile home meds? @ -no Was smoking cessation discussed for >3mins.? @ -no Was critical care preformed (if so, how long)? @ -no Were there social determinants of health that impacted care today? How? (Homelessness, low income, unemployed, alcoholism, drug addiction, transportation, low edu. Level, literacy, decrease access to med. care, longterm, rehab)? @ -no Was there de-escalation of care discussed even if they declined? (Discuss DNR or withdrawal of care, Hospice)? @ -no What co-morbidities impacted this encounter? (DM, HTN, Smoking, COPD, CAD, Cancer, CVA, Hep., AIDS, mental health diagnosis, sleep apnea, morbid obesity)? @ -no Was patient admitted / discharged? @ -admit Undiagnosed new problem with uncertain prognosis? @ -ETOH Drug Therapy requiring intensive monitoring for toxicity (Heparin, Nitro, Insulin, Cardizem)? @ -no Were any procedures done? @ -no Diagnosis/symptom? @ -ETOH toxicity Acute, or Chronic, or Acute on Chronic? @ -acute on chronic Uncomplicated (without systemic symptoms) or Complicated (systemic symptoms)? @ -complicated Side effects of treatment? @ -no Exacerbation, Progression, or Severe Exacerbation] @ -no Poses a threat to life or bodily function? @ -yes 09/26/22 19:07 - Consultations Consultation #1: Spoke with Dr. Mg who agrees to admit this patient Medical Decision Making - Medical Decision Making 37 male in significant distress secondary severe dehydration alcohol ketoacidosis, intoxication, altered abnormalities and derangement, acute pancreatitis, aspiration pneumonia, and likely pending alcohol withdrawal - Lab Data Result diagrams: 09/26/22 16:34 Lab Results 09/26/22 09/26/22 09/26/22 Range/Units 16:34 16:34 16:34 PT 9.6 (9.0-12.0) sec INR 0.9 (<1.2) Sodium (137-145) mmol/L Potassium (3.5-5.1) mmol/L Chloride (98-107) mmol/L Carbon Dioxide (22-30) mmol/L Anion Gap mmol/L BUN (9-20) mg/dL Creatinine (0.66-1.25) mg/dL Est GFR (CKD-EPI)AfAm (>60 ml/min/1.73 sqM) Est GFR (CKD-EPI)NonAf (>60 ml/min/1.73 sqM) Glucose (74-99) mg/dL Calcium (8.4-10.2) mg/dL Phosphorus (2.5-4.5) mg/dL Magnesium (1.6-2.3) mg/dL Total Bilirubin (0.2-1.3) mg/dL AST (17-59) U/L ALT (4-49) U/L Alkaline Phosphatase (38-126) U/L Ammonia 21 (<30) umol/L Total Protein (6.3-8.2) g/dL Albumin (3.5-5.0) g/dL Lipase (23-300) U/L Urine Color Yellow Urine Appearance Clear (Clear) Urine pH 6.0 (5.0-8.0) Ur Specific [place] 1.017 (1.001-1.035) Urine Protein 1+ H (Negative) Urine Glucose (UA) Negative (Negative) Urine Ketones 4+ H (Negative) Urine Blood Small H (Negative) Urine Nitrite Negative (Negative) Urine Bilirubin Negative (Negative) Urine Urobilinogen <2.0 (<2.0) mg/dL Ur Leukocyte Esterase Negative (Negative) Urine RBC <1 (0-5) /hpf Urine WBC 1 (0-5) /hpf Urine Mucus Rare H (None) /hpf Urine Opiates Screen Not Detected (NotDetected) Ur Oxycodone Screen Not Detected (NotDetected) Urine Methadone Screen Not Detected (NotDetected) Ur Propoxyphene Screen Not Detected (NotDetected) Ur Barbiturates Screen Not Detected (NotDetected) U Tricyclic Antidepress Not Detected (NotDetected) Ur Phencyclidine Scrn Not Detected (NotDetected) Ur Amphetamines Screen Not Detected (NotDetected) U Methamphetamines Scrn Not Detected (NotDetected) U Benzodiazepines Scrn Not Detected (NotDetected) Urine Cocaine Screen Not Detected (NotDetected) U Marijuana (THC) Screen Not Detected (NotDetected) 09/26/22 Range/Units 16:34 PT (9.0-12.0) sec INR (<1.2) Sodium 136 L (137-145) mmol/L Potassium 3.6 (3.5-5.1) mmol/L Chloride 94 L (98-107) mmol/L Carbon Dioxide 11 L (22-30) mmol/L Anion Gap 31 mmol/L BUN 15 (9-20) mg/dL Creatinine 0.91 (0.66-1.25) mg/dL Est GFR (CKD-EPI)AfAm >90 (>60 ml/min/1.73 sqM) Est GFR (CKD-EPI)NonAf >90 (>60 ml/min/1.73 sqM) Glucose 128 H (74-99) mg/dL Calcium 7.8 L (8.4-10.2) mg/dL Phosphorus 5.6 H (2.5-4.5) mg/dL Magnesium 1.8 (1.6-2.3) mg/dL Total Bilirubin 0.7 (0.2-1.3) mg/dL AST 258 H (17-59) U/L ALT 84 H (4-49) U/L Alkaline Phosphatase 156 H (38-126) U/L Ammonia (<30) umol/L Total Protein 7.5 (6.3-8.2) g/dL Albumin 4.6 (3.5-5.0) g/dL Lipase 1241 H (23-300) U/L Urine Color Urine Appearance (Clear) Urine pH (5.0-8.0) Ur Specific [place] (1.001-1.035) Urine Protein (Negative) Urine Glucose (UA) (Negative) Urine Ketones (Negative) Urine Blood (Negative) Urine Nitrite (Negative) Urine Bilirubin (Negative) Urine Urobilinogen (<2.0) mg/dL Ur Leukocyte Esterase (Negative) Urine RBC (0-5) /hpf Urine WBC (0-5) /hpf Urine Mucus (None) /hpf Urine Opiates Screen (NotDetected) Ur Oxycodone Screen (NotDetected) Urine Methadone Screen (NotDetected) Ur Propoxyphene Screen (NotDetected) Ur Barbiturates Screen (NotDetected) U Tricyclic Antidepress (NotDetected) Ur Phencyclidine Scrn (NotDetected) Ur Amphetamines Screen (NotDetected) U Methamphetamines Scrn (NotDetected) U Benzodiazepines Scrn (NotDetected) Urine Cocaine Screen (NotDetected) U Marijuana (THC) Screen (NotDetected) - Radiology Data Radiology results: report reviewed (Chest x-rays positive for right lower lobe pneumonia), image reviewed Critical Care Time Critical Care Time: Yes Total Critical Care Time: 31 Disposition Clinical Impression: Dehydration, Alcoholic ketoacidosis, Nausea & vomiting, Aspiration pneumonia, Acute pancreatitis Disposition: ADMITTED IP TO THIS [facility] Condition: Serious Is patient prescribed a controlled substance at d/c from ED?: No Referrals: Mary Chacon MD [Primary Care Provider] - 1-2 days Time of Disposition: 19:10
[2022-09-26 17:16] LABS: INR 0.9 (<1.2); Prothrombin Time 9.6 sec (9.0-12.0)
[2022-09-26 17:20] LABS: ALT 84 U/L (4-49); AST 258 U/L (17-59); African American GFR (CKD) >90 (>60 ml/min/1.73 sqM); Albumin 4.6 g/dL (3.5-5.0); Alkaline Phosphatase 156 U/L (38-126); Anion Gap 31 mmol/L; Blood Urea Nitrogen 15 mg/dL (9-20); Calcium 7.8 mg/dL (8.4-10.2); Carbon Dioxide 11 mmol/L (22-30); Chloride 94 mmol/L (98-107); Glucose 128 mg/dL (74-99); Lipase 1241 U/L (23-300); Magnesium 1.8 mg/dL (1.6-2.3); Non-African American GFR(CKD) >90 (>60 ml/min/1.73 sqM); Phosphorus 5.6 mg/dL (2.5-4.5); Sodium 136 mmol/L (137-145); Total Bilirubin 0.7 mg/dL (0.2-1.3); Total Protein 7.5 g/dL (6.3-8.2)
--- NOTE | 2022-09-26 17:20 | XR ---
EXAMINATION TYPE: XR chest 1V portable DATE OF EXAM: 09/26/2022 COMPARISON: NONE HISTORY: Cough TECHNIQUE: Single frontal view of the chest is obtained. FINDINGS: There is mild diffuse interstitial prominence which could be chronic in nature. There is no prior praveena dy for comparison.. There is a focal area of increased interstitial prominence in the right lower champ g zone which could represent a small pneumonic infiltrate. Heart size is normal. The pulmonary vasculature is not congested. There is no pneumothorax or large p leural effusion. The osseous structures are intact IMPRESSION: Small focal right lower lung zone infiltrate which could represent a pneumonic infiltrate. Short-term follow-up to resolution is recommended.
[2022-09-26 17:53] LABS: Potassium 3.6 mmol/L (3.5-5.1)
[2022-09-26] MEDS ORDERED: NICOTINE 21MG/24HR PATCH TRANSDERM STA (17:58)
[2022-09-26 18:58] LABS: Amphetamine Screen,Urine Not Detected (NotDetected); Appearance,Urine Clear (Clear); Barbiturate Screen,Urine Not Detected (NotDetected); Benzodiazepines Screen,Urine Not Detected (NotDetected); Bilirubin,Urine Negative (Negative); Blood,Urine Small (Negative); Cocaine Screen,Urine Not Detected (NotDetected); Color,Urine Yellow; Glucose,Urine (UA) Negative (Negative); Ketones,Urine 4+ (Negative); Leukocyte Esterase,Urine Negative (Negative); Methadone Screen, Urine Not Detected (NotDetected); Mucus,Urine Rare /hpf; Nitrite,Urine Negative (Negative); Opiate Screen,Urine Not Detected (NotDetected); Oxycodone Screen, Urine Not Detected (NotDetected); Phencyclidine Screen,Urine Not Detected (NotDetected); Protein,Urine 1+ (Negative); RBC,Urine <1 /hpf (0-5); Specific Gravity,Urine 1.017 (1.001-1.035); Tricyclic Antidepressant,Urine Not Detected (NotDetected); Urn Cannabinoid Scrn Not Detected (NotDetected); Urobilinogen,Urine <2.0 mg/dL (<2.0); WBC,Urine 1 /hpf (0-5)
[2022-09-26] MEDS ORDERED: PNEUMONIA PROTOCOL UTILIZED 1 EACH MISC PO PRN (19:02)
[2022-09-26] MEDS ORDERED: IPRATROPIUM-ALBUTEROL 3 ML NEB INHALATION PRN (19:02)
[2022-09-26] MEDS ORDERED: AZITHROMYCIN 500 MG in SODIUM CHLORIDE 0.9% 250 ML IVPB STA (19:02)
[2022-09-26] MEDS: SODIUM CHLORIDE 0.9% 1,000 ML IV SCH (20:20)
[2022-09-26] MEDS: metroNIDAZOLE-NS PMX 500 MG in SALINE 1 100ML.BAG IVPB SCH (23:09)
[2022-09-27] MEDS: LORazepam 2 MG/ML INJ IV PRN ×6 (01:57→20:47)
[2022-09-27] MEDS: SODIUM CHLORIDE 0.9% 1,000 ML IV SCH ×3 (04:17→22:44)
[2022-09-27] MEDS: metroNIDAZOLE-NS PMX 500 MG in SALINE 1 100ML.BAG IVPB SCH (08:04)
[2022-09-27] MEDS: FOLIC ACID 1 MG TAB PO SCH (09:44)
[2022-09-27] MEDS: MULTIVITAMINS, THERA 1 EACH TAB PO SCH (09:44)
[2022-09-27] MEDS: NICOTINE 21MG/24HR PATCH TRANSDERM SCH (09:44)
[2022-09-27] MEDS: THIAMINE 100 MG TAB PO SCH (09:44)
[2022-09-27] MEDS: METOPROLOL TARTRATE 50 MG TAB PO SCH ×2 (10:50→20:47)
[2022-09-27] MEDS: LOSARTAN 25 MG TAB PO SCH ×2 (10:51→20:47)
--- NOTE | 2022-09-27 13:28 | P.HPIM ---
History of Present Illness Patient is a that [id number] male admitted for alcohol withdrawal patient admits to drinking about 2/5 of liquor every day patient is presently undergoing withdrawals and shaking. Patient denied any previous history of seizures. Patient is found to have multiple other issues from Hospital physician patient has a right middle lobe infiltrate patient is coughing unable to bring up anything patient admits to smoking one pack of cigarettes per day patient is presently on Rocephin and azithromycin unfortunately I do not have CBC available at this time patient doesn't have any fevers. Pro-calcitonin was ordered. Patient does have mildly elevated liver enzymes seconded alcoholic hepatitis. Patient does have an gap metabolic acidosis, lactic acid level is not available at this time. Patient does have ketones in the urine which appears to be starvation ketosis. Patient is on Ativan for withdrawals and the patient is al so on IV fluids at this time. REVIEW OF SYSTEMS: CONSTITUTIONAL: No fever, no malaise, no fatigue. HEENT: No recent visual problems or hearing problems. Denied any sore throat. CARDIOVASCULAR: No chest pain, orthopnea, PND, no palpitations, no syncope. PULMONARY: , no hemoptysis. GASTROINTESTINAL: No diarrhea, no nausea, no vomiting, no abdominal pain. NEUROLOGICAL: No headaches, no weakness, no numbness. HEMATOLOGICAL: Denies any bleeding or petechiae. GENITOURINARY: Denies any burning micturition, frequency, or urgency. MUSCULOSKELETAL/RHEUMATOLOGICAL: Denies any joint pain, swelling, or any muscle pain. ENDOCRINE: Denies any polyuria or polydipsia. The rest of the 14-point review of systems is negative. PHYSICAL EXAMINATION: GENERAL: The patient is alert and oriented x3, not in any acute distress. Well developed, well nourished. Patient appears to be actively undergoing withdrawals HEENT: Pupils are round and equally reacting to light. EOMI. No scleral icterus. No conjunctival pallor. Normocephalic, atraumatic. No pharyngeal erythema. No thyromegaly. CARDIOVASCULAR: S1 and S2 present. No murmurs, rubs, or gallops. PULMONARY: Chest is clear to auscultation, no wheezing or crackles. Mild expiratory wheezing ABDOMEN: Soft, nontender, nondistended, normoactive bowel sounds. No palpable organomegaly. MUSCULOSKELETAL: No joint swelling or deformity. EXTREMITIES: No cyanosis, clubbing, or pedal edema. NEUROLOGICAL: Gross neurological examination did not reveal any focal deficits. SKIN: No rashes. Assessment and plan -Acute alcohol withdrawals: Patient will be continued on Ativan for withdrawals counseling regarding alcohol cessation was provided and patient is willing to alcohol. -Acute alcoholic hepatitis expected to improve with the cessation of alcohol -Mildly elevated lipase secondary to chronic alcoholism nonspecific elevation patient doesn't have any symptoms of pancreatitis patient does not have pancreatitis clinically. -Community-acquired pneumonia which cannot be ruled out will obtain for Level patient does have infiltrate on the chest x-ray in the right middle lobe, CBC will be obtained. Hypertension: Patient will be resumed on home regimen I's and have an tach cardia secondary to alcohol withdrawals DVT prophylaxis: Lovenox Past Medical History Past Medical History: Hypertension History of Any Multi-Drug Resistant Organisms: None Reported Past Surgical History: No Surgical Hx Reported Past Psychological History: Anxiety, Depression Smoking Status: Current every day smoker Past Alcohol Use History: Daily, Heavy Past Drug Use History: None Reported Medications and Allergies Home Medications Medication Instructions Recorded Confirmed Type Losartan Potassium [Cozaar] 25 mg PO BID 07/21/20 09/26/22 History Metoprolol Tartrate [Lopressor] 100 mg PO BID 07/21/20 09/26/22 History Allergies Allergy/AdvReac Type Severity Reaction Status Date / Time No Known Allergies Allergy Verified 09/26/22 18:40 Physical Exam Vitals: Vital Signs Temp Pulse Pulse Resp BP BP Pulse Ox 09/27/22 09:51 140 H 179/105 09/27/22 08:28 80 96 09/27/22 07:56 99.1 F 132 H 18 168/98 96 09/27/22 06:00 98.2 F 80 16 126/79 97 09/26/22 23:12 98.8 F 79 20 118/82 95 09/26/22 18:24 120 H 24 143/87 97 09/26/22 17:00 93 L 09/26/22 16:06 97.1 F L 122 H 24 134/74 95 FiO2 09/27/22 09:51 09/27/22 08:28 21 09/27/22 07:56 09/27/22 06:00 09/26/22 23:12 09/26/22 18:24 09/26/22 17:00 09/26/22 16:06 Intake and Output 09/26/22 09/27/22 09/27/22 22:59 06:59 14:59 Other: Voiding Method Toilet Urinal Weight 92.986 kg 92.986 kg Results CBC & Chem 7: 09/26/22 16:34 Labs: Abnormal Lab Results - Last 24 Hours (Table) 09/26/22 09/26/22 Range/Units 16:34 18:35 Sodium 136 L (137-145) mmol/L Chloride 94 L (98-107) mmol/L Carbon Dioxide 11 L (22-30) mmol/L Glucose 128 H (74-99) mg/dL Calcium 7.8 L (8.4-10.2) mg/dL Phosphorus 5.6 H (2.5-4.5) mg/dL AST 258 H (17-59) U/L ALT 84 H (4-49) U/L Alkaline Phosphatase 156 H (38-126) U/L Lipase 1241 H (23-300) U/L Urine Protein 1+ H (Negative) Urine Ketones 4+ H (Negative) Urine Blood Small H (Negative) Urine Mucus Rare H (None) /hpf Thrombosis Risk Factor Assmnt - Choose All That Apply Any of the Below Risk Factors Present?: No Other Risk Factors: No Other congenital or acquired thrombophilia - If yes, enter type in comment: No Thrombosis Risk Factor Assessment Level: Very Low Risk
[2022-09-27 15:22] LABS: Anisocytosis Slight; Basophils % (A) 0 %; Eosinophils % (A) 0 %; HCT 42.2 % (39.0-53.0); HGB 15.1 gm/dL (13.0-17.5); Lymphocytes # (A) 0.9 k/uL (1.0-4.8); Lymphocytes % (A) 19 %; MCH 28.7 pg (25.0-35.0); MCHC 35.7 g/dL (31.0-37.0); MCV 80.4 fL (80.0-100.0); Microcytosis Slight; Monocytes # (A) 0.2 k/uL (0-1.0); Monocytes % (A) 5 %; Neutrophils # (A) 3.3 k/uL (1.3-7.7); Neutrophils % (A) 75 %; RBC 5.25 m/uL (4.30-5.90); RDW 16.7 % (11.5-15.5); WBC 4.4 k/uL (3.8-10.6)
[2022-09-27 15:58] LABS: Platelet Count 22 k/uL (150-450)
[2022-09-27] MEDS ORDERED: AZITHROMYCIN 500 MG in SODIUM CHLORIDE 0.9% 250 ML IVPB SCH (16:00)
[2022-09-28] MEDS: LORazepam 2 MG/ML INJ IV PRN ×8 (01:57→21:08)
[2022-09-28] MEDS: chlordiazePOXIDE 25 MG CAP PO SCH ×5 (04:44→21:38)
[2022-09-28] MEDS: ENOXAPARIN 40 MG/0.4 ML SYRINGE SQ SCH (08:29)
[2022-09-28] MEDS: FOLIC ACID 1 MG TAB PO SCH (08:29)
[2022-09-28] MEDS: METOPROLOL TARTRATE 50 MG TAB PO SCH ×2 (08:29→21:38)
[2022-09-28] MEDS: LOSARTAN 25 MG TAB PO SCH (08:29)
[2022-09-28] MEDS: THIAMINE 100 MG TAB PO SCH (08:29)
[2022-09-28] MEDS: MULTIVITAMINS, THERA 1 EACH TAB PO SCH (08:29)
[2022-09-28] MEDS: NICOTINE 21MG/24HR PATCH TRANSDERM SCH (08:30)
[2022-09-28 11:20] LABS: Albumin 4.3 g/dL (3.8-4.9); Albumin/Globulin Ratio 1.79 (1.60-3.17); Anion Gap 17.5 mmol/L (10.00-18.00); BUN/Creat Ratio 10.18 Ratio (12.00-20.00); Blood Urea Nitrogen 6.7 mg/dL (9.0-27.0); Calcium 9.3 mg/dL (8.7-10.3); Carbon Dioxide 29.2 mmol/L (20.0-27.5); Globulin 2.4 g/dL (1.6-3.3); Potassium 2.6 mmol/L (3.5-5.5); Total Bilirubin 0.6 mg/dL (0.30-1.20); Total Protein 6.6 g/dL (6.2-8.2)
[2022-09-28 11:30] LABS: African American GFR (CKD) 141.2 (60.0-200.0); Non-African American GFR(CKD) 121.9 (60.0-200.0)
[2022-09-28] MEDS ORDERED: Potassium Replacement Protocol 1 EACH MISC MISCELLANE PRN (11:48)
[2022-09-28] MEDS ORDERED: LORazepam 2 MG/ML INJ IV STA (11:49)
[2022-09-28] MEDS ORDERED: HALOPERIDOL LACTATE 5 MG/ML 1 ML VIAL IM ONE (12:00)
[2022-09-28] MEDS: POTASSIUM CHLORIDE ER 20 MEQ TAB.ER PO SCH ×2 (13:31→13:32)
[2022-09-28 13:46] LABS: HGB 14.7 g/dL (13.0-17.0); Immature Platelet Fraction 19.5 % (1.1-6.1); MCH 27.7 pg (27.0-32.0); MCHC 33.4 g/dL (32.0-37.0); MCV 82.9 fL (80.0-97.0); NRBC Per 100 WBC 0 /100 WBCS (0.0-0.0); Platelet Count 24 X 10*3/uL (140-440); RBC 5.31 X 10*6/uL (4.40-5.60); RDW 16.5 % (11.5-14.5); WBC 4.07 X 10*3/uL (4.50-10.00)
[2022-09-28] MEDS: POTASSIUM CHLORIDE 10 MEQ in WATER FOR INJECTION 1 100ML.BAG IVPB SCH ×8 (14:11→22:00)
--- NOTE | 2022-09-28 14:59 | P.PN ---
Subjective Progress Note Date: 09/28/22 Patient is a that [id number] male admitted for alcohol withdrawal patient admits to drinking about 2/5 of liquor every day patient is presently undergoing withdrawals and shaking. Patient denied any previous history of seizures. Patient is found to have multiple other issues from Hospital physician patient has a right middle lobe infiltrate patient is coughing unable to bring up anything patient admits to smoking one pack of cigarettes per day patient is presently on Rocephin and azithromycin unfortunately I do not have CBC available at this time patient doesn't have any fevers. Pro-calcitonin was ordered. Patient does have mildly elevated liver enzymes seconded alcoholic hepatitis. Patient does have an gap metabolic acidosis, lactic acid level is not available at this time. Patient does have ketones in the urine which appears to be starvation ketosis. Patient is on Ativan for withdrawals and the patient is also on IV fluids at this time. 09/28/2022 Patient is evaluated in follow up today on medical floor. He has sitter at the bedside secondary to acute agitation. He is currently resting in bed alert x2 and is noted to be having visual hallucinations at the time of assessment mid morning. He has no acute complaints. He has no tremors noted with arms extended. He has been receiving IV ativan per CIWA protocol and as well as oral librium QID. Patients CIWA score between 7 and 14. He had received 1 mg of ativan at 713 and 1 mg of ativan at 1017. He became agitated and CIWA score went up to 19, he was given 2 mg of IV ativan at 1140 and a Mr. Richards was called. A second 2 mg dose of ativan was ordered and a second Mr. Richards was called. Haldol was ordered. Patient was restrained. Patient was re-evaluated at the bedside by attending and discussed with platform consultant to upgrade to ICU. Patient's last documented CIWA was 30. Patient is now sedated and resting. He was placed on 2L of nasal cannula. He will be upgraded to ICU for closer monitoring. Patient remains on IV antibiotics for possible aspiration pneumonia. Potassium of 2.6 today and he is receiving IV supplementation. His LFT's are improving. Review of Systems Constitutional: Denied any fatigue denied any fever. Cardio vascular: denied any chest pain, palpitations Gastrointestinal: denied any nausea, vomiting. Reports episode of diarrhea Pulmonary: Denied any shortness of breath cough Neurologic denied any new focal deficits All inpatient medications were reviewed and appropriate changes in these med ications as dictated in the interval history and assessment and plan. PHYSICAL EXAMINATION: GENERAL: The patient is alert and oriented x2, not in any acute distress. Well developed, well nourished. Patient is confused. Appears to be having visual hallucinations. HEENT: Pupils are round and equally reacting to light. EOMI. No scleral icterus. No conjunctival pallor. Normocephalic, atraumatic. No pharyngeal erythema. No thyromegaly. CARDIOVASCULAR: S1 and S2 present. No murmurs, rubs, or gallops. PULMONARY: Mild expiratory wheezing ABDOMEN: Soft, nontender, nondistended, normoactive bowel sounds. No palpable organomegaly. MUSCULOSKELETAL: No joint swelling or deformity. EXTREMITIES: No cyanosis, clubbing, or pedal edema. NEUROLOGICAL: Gross neurological examination did not reveal any focal deficits. SKIN: No rashes. Assessment and plan Assessment Plan -Acute alcohol withdrawal receiving IV ativan protocol patient appears to be actively withdrawing with worsening CIWA. Patient has been placed in restraints. Recommending to remove restraints. Patient is now sedated. -Acute alcoholic hepatitis -Mildly elevated lipase secondary to chronic alcoholism nonspecific elevation will be trended -Right middle lobe infiltrate, community acquired pneumonia vs. aspiration pneumonia; patient reports his PCP prescribing oral antibiotics outpatient but he never picked them up. Procalcitonin level 0.26, his white count is normal. -History of hypertension, resumed on home metoprolol and losartan decreased to daily -Hypokalemia -Thrombocytopenia secondary to chronic alcoholism -Chronic alcohol abuse -Nicotine dependence -Anxiety/Depresion DVT prophylaxis: Lovenox GI prophylaxis: Protonix Plan Patient has required increasing doses of IV ativan and did require IV haldol Patient will be upgraded to intensive care unit for closer monitoring Continue ativan CIWA protocol Potassium supplementation and repeat level continue with replacement protocol Repeat labs in AM F/U lipase level F/U chest xray The impression and plan of care has been dictated by Lola Cortez, Nurse Practitioner as directed. Dr. Zuly MD I have performed a history and physical examination and medical decision making of this patient, discussed the same with the dictator, and agree with the dictators assessment and plan as written, documented as a scribe. Based on total visit time, I have performed more than 50% of this visit. Objective - Vital Signs Vital signs: Vital Signs Temp 97.9 F 09/28/22 07:42 Pulse 91 09/28/22 12:45 Resp 22 09/28/22 12:45 BP 117/72 09/28/22 12:45 Pulse Ox 95 09/28/22 12:45 FiO2 21 09/28/22 08:45 Intake & Output 09/27/22 09/28/22 09/28/22 18:59 06:59 18:59 Weight 92.986 kg Other: Voiding Method Toilet Toilet Toilet Urinal Urinal Urinal Incontinent # Voids 2 5 # Bowel Movements 1 - Labs CBC & Chem 7: 09/28/22 06:08 09/28/22 06:08 Labs: Abnormal Lab Results - Last 24 Hours (Table) 09/27/22 09/27/22 09/28/22 Range/Units 14:30 14:30 06:08 WBC 4.07 L (4.50-10.00) X 10*3/uL RDW 16.7 H 16.5 H (11.5-15.5) % Plt Count 22 L 24 L (150-450) k/uL Lymphocytes # 0.9 L (1.0-4.8) k/uL Immature Plt Fraction 19.5 H (1.1-6.1) % Potassium (3.5-5.5) mmol/L Chloride (96-109) mmol/L Carbon Dioxide (20.0-27.5) mmol/L BUN (9.0-27.0) mg/dL BUN/Creatinine Ratio (12.00-20.00) Ratio AST (14-35) U/L ALT (10-49) U/L Alkaline Phosphatase (41-126) U/L Procalcitonin 0.26 H (0.02-0.09) ng/mL 09/28/22 Range/Units 06:08 WBC (4.50-10.00) X 10*3/uL RDW (11.5-15.5) % Plt Count (150-450) k/uL Lymphocytes # (1.0-4.8) k/uL Immature Plt Fraction (1.1-6.1) % Potassium 2.6 L* (3.5-5.5) mmol/L Chloride 92 L (96-109) mmol/L Carbon Dioxide 29.2 H (20.0-27.5) mmol/L BUN 6.7 L (9.0-27.0) mg/dL BUN/Creatinine Ratio 10.18 L (12.00-20.00) Ratio AST 144 H (14-35) U/L ALT 77 H (10-49) U/L Alkaline Phosphatase 155 H (41-126) U/L Procalcitonin (0.02-0.09) ng/mL Microbiology - Last 24 Hours (Table) 09/26/22 20:00 Blood Culture - Preliminary Blood No Growth after 24 hours 09/26/22 19:50 Blood Culture - Preliminary Blood No Growth after 24 hours Assessment and Plan Time with Patient: Greater than 30
[2022-09-28 15:37] LABS: Glucose,Whole Blood 85 mg/dL (70-110)
--- NOTE | 2022-09-28 15:42 | P.CNPUL ---
History of Present Illness Consult date: 09/28/22 Requesting physician: Suyapa Caruso Reason for consult: other (Acute alcohol withdrawal and pneumonia) Chief complaint: Altered mental status and acute alcohol intoxication History of present illness: This is a 57-year-old white male with history of alcoholism, patient drinks on the average of 2/5 of liquor every day. Patient was brought into the ER yesterday with mental status change and acute alcohol intoxication. Patient was admitted for alcohol withdrawal symptoms, and apparently on the floor he has been requiring a significant amount of medication to control his agitation is karishma josephine has been receiving Ativan, and Haldol. Not much history could obtain from the patient himself,, just received Haldol and Ativan, and there is a bedside sitter patient is in for point leather restraints. Apparently Mr. rg was called because of the severe agitation that the patient has demonstrated earlier. At any rate I was notified by his admitting physician/Dr. Caruso about this patient and about the difficulty controlling his agitation is on the floor, then I recommended the patient be transferred to the ICU for possible Precedex drip and to continue the CIWA protocol. Chest x-ray on admission showed a limited infiltrate in the right lower lobe consistent with pneumonia. Pro-calcitonin level was elevated at 0.26. His labs showed low potassium of 2.6. Drug screen on admission was negative. Looking back at this patient's previous admission back in 2020, he was admitted back then with new onset seizure and severe hypokalemia I'll call withdrawal symptoms, at that time the patient had to be placed on the CIWA protocol with Ativan and he was seen by psychiatry as well as neurology and cardiology on that last admission. Review of Systems ROS unobtainable: due to mental status Past Medical History Past Medical History: Hypertension History of Any Multi-Drug Resistant Organisms: None Reported Past Surgical History: No Surgical Hx Reported Past Psychological History: Anxiety, Depression Smoking Status: Current every day smoker Past Alcohol Use History: Daily, Heavy Past Drug Use History: None Reported Medications and Allergies Home Medications Medication Instructions Recorded Confirmed Type Losartan Potassium [Cozaar] 25 mg PO BID 07/21/20 09/26/22 History Metoprolol Tartrate [Lopressor] 100 mg PO BID 07/21/20 09/26/22 History Allergies Allergy/AdvReac Type Severity Reaction Status Date / Time No Known Allergies Allergy Verified 09/26/22 18:40 Physical Exam Vitals: Vital Signs Temp Pulse Resp BP Pulse Ox FiO2 09/28/22 13:57 87 16 114/76 99 09/28/22 12:45 91 22 117/72 95 09/28/22 08:45 98 21 09/28/22 08:29 20 09/28/22 07:42 97.9 F 118 H 19 162/109 98 09/28/22 02:00 97.4 F L 99 16 155/97 97 09/27/22 20:00 110 H 16 09/27/22 19:33 96.9 F L 110 H 16 153/76 97 Intake and Output 09/28/22 09/28/22 09/28/22 06:59 14:59 22:59 Other: Voiding Method Toilet Urinal Incontinent # Voids 5 Physical Exam: Revealed 57-year-old white male sedated, patient received Ativan and Haldol just before I evaluated the patient. Seems to be calm and he is in 4 points restraints. Head: Atraumatic normocephalic HEENT:[Neck is supple.] [No neck masses.] [No thyromegaly.] [No JVD.] Chest: [Clear throughout, no crackles, no rhonchi, no wheezes.] Cardiac Exam: [Normal S1 and S2, no S3 gallop, no murmur.] Abdomen: [Soft, nontender, no megaly, no rebound, no guarding, normal bowel sounds.] Extremities: [No clubbing, no edema, no cyanosis.] Neurological Exam: Could not assess, patient is sedated and calm. Psychiatric: Could not assess. Results - Laboratory Findings CBC and BMP: 09/28/22 06:08 09/28/22 06:08 PT/INR, D-dimer PT 9.6 sec (9.0-12.0) 09/26/22 16:34 INR 0.9 (<1.2) 09/26/22 16:34 Abnormal lab findings: Abnormal Labs 09/26/22 09/26/22 09/27/22 16:34 18:35 14:30 WBC RDW Plt Count Lymphocytes # Immature Plt Fraction Sodium 136 L Potassium Chloride 94 L Carbon Dioxide 11 L BUN BUN/Creatinine Ratio Glucose 128 H Calcium 7.8 L Phosphorus 5.6 H AST 258 H ALT 84 H Alkaline Phosphatase 156 H Lipase 1241 H Procalcitonin 0.26 H Urine Protein 1+ H Urine Ketones 4+ H Urine Blood Small H Urine Mucus Rare H 09/27/22 09/28/22 09/28/22 14:30 06:08 06:08 WBC 4.07 L RDW 16.7 H 16.5 H Plt Count 22 L 24 L Lymphocytes # 0.9 L Immature Plt Fraction 19.5 H Sodium Potassium 2.6 L* Chloride 92 L Carbon Dioxide 29.2 H BUN 6.7 L BUN/Creatinine Ratio 10.18 L Glucose Calcium Phosphorus AST 144 H ALT 77 H Alkaline Phosphatase 155 H Lipase Procalcitonin Urine Protein Urine Ketones Urine Blood Urine Mucus - Diagnostic Findings Chest x-ray: image reviewed (Chest x-ray showed limited infiltrate in the right lower lobe.) Assessment and Plan Assessment: Impression: Acute alcohol withdrawal Acute alcoholic hepatitis Right lower lobe pneumonia could be community-acquired pneumonia or could be a spiration pneumonia Benign essential hypertension Previous history of seizures, may or may not be alcohol withdrawal related Recommendation: Transfer patient to ICU Continue CIWA protocol, continue thiamine IV fluids and address abnormal electrolytes specially low potassium. Start patient on Precedex drip and titrate accordingly GI and DVT prophylaxis Antibiotics for his right lower lobe pneumonia patient is already on ceftriaxone. We will continue to follow. Resume blood pressure medications as taken at home including losartan and metoprolol. Time with Patient: Greater than 30
--- NOTE | 2022-09-28 17:36 | XR ---
EXAMINATION TYPE: XR chest 1V portable DATE OF EXAM: 09/28/2022 5:07 PM COMPARISON: Chest radiographs from 09/26/2022 TECHNIQUE: XR chest 1V portable Frontal view of the chest. CLINICAL INDICATION:Male, 37 years old with history of cough; FINDINGS: Lungs/Pleura: There is no evidence of focal consolidation, or pneumothorax. Blunting of the left co stophrenic angle. Pulmonary vascularity: Unremarkable. Heart/mediastinum: Cardiomediastinal silhouette is unremarkable. Musculoskeletal: No acute osseous pathology. IMPRESSION: 1. No focal consolidation, increased lung markings in the lung bases. 2. Trace left pleural effusion.
[2022-09-28] MEDS: SODIUM CHLORIDE 0.9% 1,000 ML IV SCH (18:11)
[2022-09-28] MEDS ORDERED: ONDANSETRON 4 MG/2 ML VIAL IVP PRN (20:02)
[2022-09-29] MEDS: LORazepam 2 MG/ML INJ IV PRN ×6 (01:36→20:23)
[2022-09-29] MEDS: POTASSIUM CHLORIDE ER 20 MEQ TAB.ER PO SCH ×6 (01:55→14:33)
[2022-09-29] MEDS: SODIUM CHLORIDE 0.9% 1,000 ML IV SCH ×2 (01:57→17:39)
[2022-09-29 06:36] LABS: Anisocytosis Slight; Basophils % (A) 0 %; Eosinophils # (A) 0.1 k/uL (0-0.7); Eosinophils % (A) 3 %; HCT 37.8 % (39.0-53.0); HGB 13.1 gm/dL (13.0-17.5); Lymphocytes # (A) 1.2 k/uL (1.0-4.8); Lymphocytes % (A) 27 %; MCH 28.6 pg (25.0-35.0); MCHC 34.5 g/dL (31.0-37.0); MCV 82.9 fL (80.0-100.0); Mean Platelet Volume 11.2; Monocytes # (A) 0.3 k/uL (0-1.0); Monocytes % (A) 6 %; Neutrophils # (A) 2.8 k/uL (1.3-7.7); Neutrophils % (A) 63 %; RBC 4.56 m/uL (4.30-5.90); RDW 16.2 % (11.5-15.5); WBC 4.5 k/uL (3.8-10.6)
[2022-09-29 06:49] LABS: Platelet Count 30 k/uL (150-450)
[2022-09-29 06:51] LABS: ALT 77 U/L (4-49); AST 146 U/L (17-59); African American GFR (CKD) >90 (>60 ml/min/1.73 sqM); Albumin 3.4 g/dL (3.5-5.0); Alkaline Phosphatase 120 U/L (38-126); Anion Gap 7 mmol/L; Blood Urea Nitrogen 10 mg/dL (9-20); Calcium 8.3 mg/dL (8.4-10.2); Carbon Dioxide 31 mmol/L (22-30); Chloride 97 mmol/L (98-107); Glucose 124 mg/dL (74-99); Magnesium 1.4 mg/dL (1.6-2.3); Non-African American GFR(CKD) >90 (>60 ml/min/1.73 sqM); Sodium 135 mmol/L (137-145); Total Bilirubin 0.6 mg/dL (0.2-1.3); Total Protein 5.9 g/dL (6.3-8.2)
--- NOTE | 2022-09-29 08:31 | XR ---
EXAMINATION TYPE: XR chest 2V DATE OF EXAM: 09/29/2022 COMPARISON: 09/28/2022 INDICATION: Infiltrate TECHNIQUE: Frontal and lateral views of the chest are obtained. FINDINGS: The heart size is normal. The pulmonary vasculature is normal. Minimal infiltrate at the left base has largely resolved. Some residual left pleural and posterior ef fusion may be present. IMPRESSION: 1. Minimal left pleural effusion
[2022-09-29] MEDS ORDERED: Magnesium Replacement Protocol 1 EACH MISC MISCELLANE PRN (08:34)
[2022-09-29] MEDS: ENOXAPARIN 40 MG/0.4 ML SYRINGE SQ SCH (08:49)
[2022-09-29] MEDS: METOPROLOL TARTRATE 50 MG TAB PO SCH ×2 (08:50→20:19)
[2022-09-29] MEDS: NICOTINE 21MG/24HR PATCH TRANSDERM SCH (08:50)
[2022-09-29] MEDS: FOLIC ACID 1 MG TAB PO SCH (08:50)
[2022-09-29] MEDS: MULTIVITAMINS, THERA 1 EACH TAB PO SCH (08:50)
[2022-09-29] MEDS: THIAMINE 100 MG TAB PO SCH (08:50)
[2022-09-29] MEDS: MAGNESIUM SULFATE-D5W PMX 1 GM in DEXTROSE/WATER 1 100ML.BAG IVPB SCH ×2 (08:51→13:33)
[2022-09-29] MEDS: chlordiazePOXIDE 25 MG CAP PO SCH ×4 (08:54→21:53)
[2022-09-29] MEDS ORDERED: LOSARTAN 25 MG TAB PO SCH (09:00)
--- NOTE | 2022-09-29 11:57 | P.PN ---
Subjective Progress Note Date: 09/29/22 Principal diagnosis: acute alcohol withdrawal This is a 57-year-old white male with history of alcoholism, patient drinks on the average of 2/5 of liquor every day. Patient was brought into the ER yesterday with mental status change and acute alcohol intoxication. Patient was admitted for alcohol withdrawal symptoms, and apparently on the floor he has been requiring a significant amount of medication to control his agitation is patient has been receiving Ativan, and Haldol. Not much history could obtain from the patient himself,, just received Haldol and Ativan, and there is a bedside sitter patient is in for point leather restraints. Apparently Mr. rg was called because of the severe agitation that the patient has demonstrated earlier. At any rate I was notified by his admitting physician/Dr. Caruso about this patient and about the difficulty controlling his agitation is on the floor, then I recommended the patient be transferred to the ICU for possible Precedex drip and to continue the CIWA protocol. Chest x-ray on admission showed a limited infiltrate in the right lower lobe consistent with pneumonia. Pro-calcitonin level was elevated at 0.26. His labs showed low potassium of 2.6. Drug screen on admission was negative. Looking back at this patient's previous admission back in 2020, he was admitted back then with new onset seizure and severe hypokalemia I'll call withdrawal symptoms, at that time the patient had to be placed on the CIWA protocol with Ativan and he was seen by psychiatry as well as neurology and cardiology on that last admission. Either later today on 09/29/2022, patient is in the ICU, he is not requiring any Precedex, he remains on the CIWA protocol, receives Ativan as needed. Patient is calm, not in distress, his IV fluid at 75 mL per hour, hence I plan to transfer the patient back to [address] [place] [address] today. WBC count is 4.5 hemoglobin 13.1 electrolytes are normal except for low potassium of 3.0 being addressed, renal profile is normal.pro calcitonin level is 0.26 on this admission, patient remains empirically on antibiotics for presumptive pneumonia Objective - Vital Signs Vital signs: Vital Signs Temp 97.9 F 09/29/22 08:00 Pulse 111 H 09/29/22 08:00 Resp 19 09/29/22 08:00 BP 151/90 09/29/22 09:00 Pulse Ox 98 09/29/22 09:04 FiO2 21 09/28/22 08:45 Intake & Output 09/28/22 09/29/22 09/29/22 18:59 06:59 18:59 Intake Total 375 1225 225 Output Total 0 2410 275 Balance 375 -1185 -50 Weight 89.9 kg Intake: IV 825 225 Sodium Chloride 0.9% 1, 825 225 000 ml @ 75 mls/hr IV . [id number] [facility] Rx#:[id number] Intake, IV Titration 375 400 Amount Potassium Chloride 10 meq 300 400 In Water For Injection 1 100ml.bag @ 100 mls/hr IVPB Q1HR [facility] Rx#: [id number] Sodium Chloride 0.9% 1, 75 000 ml @ 75 mls/hr IV . [id number] [facility] Rx#:[id number] Output: Urine 0 2410 275 Other: Voiding Method External Catheter Indwelling Catheter Indwelling Catheter # Bowel Movements 1 - Exam Physical Exam: Revealed 57-year-old white male , in no distress, awake, and very cooperative. Head: Atraumatic normocephalic HEENT:[Neck is supple.] [No neck masses.] [No thyromegaly.] [No JVD.] Chest: [Clear throughout, no crackles, no rhonchi, no wheezes.] Cardiac Exam: [Normal S1 and S2, no S3 gallop, no murmur.] Abdomen: [Soft, nontender, no megaly, no rebound, no guarding, normal bowel sounds.] Extremities: [No clubbing, no edema, no cyanosis.] Neurological Exam:alert and oriented 3, no gross focal neurologic deficits. Psychiatric: normal mood affect and normal mental status examination. - Labs CBC & Chem 7: 09/29/22 05:38 09/29/22 05:38 Labs: Abnormal Lab Results - Last 24 Hours (Table) 09/28/22 09/28/22 09/29/22 Range/Units 06:08 06:08 01:02 WBC 4.07 L (4.50-10.00) X 10*3/uL Hct (39.0-53.0) % RDW 16.5 H (11.5-14.5) % Plt Count 24 L (140-440) X 10*3/uL Immature Plt Fraction 19.5 H (1.1-6.1) % Sodium (137-145) mmol/L Potassium 3.2 L (3.5-5.1) mmol/L Chloride (98-107) mmol/L Carbon Dioxide (22-30) mmol/L Creatinine (0.66-1.25) mg/dL Glucose (74-99) mg/dL Calcium (8.4-10.2) mg/dL Magnesium (1.6-2.3) mg/dL AST (17-59) U/L ALT (4-49) U/L Total Protein (6.3-8.2) g/dL Albumin (3.5-5.0) g/dL Lipase 135 H (14-60) U/L 09/29/22 09/29/22 Range/Units 05:38 05:38 WBC (4.50-10.00) X 10*3/uL Hct 37.8 L (39.0-53.0) % RDW 16.2 H (11.5-14.5) % Plt Count 30 L (140-440) X 10*3/uL Immature Plt Fraction (1.1-6.1) % Sodium 135 L (137-145) mmol/L Potassium 3.0 L (3.5-5.1) mmol/L Chloride 97 L (98-107) mmol/L Carbon Dioxide 31 H (22-30) mmol/L Creatinine 0.56 L (0.66-1.25) mg/dL Glucose 124 H (74-99) mg/dL Calcium 8.3 L (8.4-10.2) mg/dL Magnesium 1.4 L (1.6-2.3) mg/dL AST 146 H (17-59) U/L ALT 77 H (4-49) U/L Total Protein 5.9 L (6.3-8.2) g/dL Albumin 3.4 L (3.5-5.0) g/dL Lipase (14-60) U/L Microbiology - Last 24 Hours (Table) 09/26/22 20:00 Blood Culture - Preliminary Blood No Growth after 48 hours 09/26/22 19:50 Blood Culture - Preliminary Blood No Growth after 48 hours Assessment and Plan Assessment: Impression: Acute alcohol withdrawal Acute alcoholic hepatitis Right lower lobe pneumonia could be community-acquired pneumonia or could be aspiration pneumonia, patient is noted to have elevated pro calcitonin level Benign essential hypertension Previous history of seizures, may or may not be alcohol withdrawal related Recommendation: consider transferring the patient to a regular medical floor. Continue CIWA protocol, continue thiamine IV fluids and address abnormal electrolytes specially low potassium. GI and DVT prophylaxis continue ceftriaxone. We will continue to follow. Time with Patient: Less than 30
--- NOTE | 2022-09-29 14:50 | P.PN ---
Subjective Progress Note Date: 09/29/22 Patient is a that [id number] male admitted for alcohol withdrawal patient admits to drinking about 2/5 of liquor every day patient is presently undergoing withdrawals and shaking. Patient denied any previous history of seizures. Patient is found to have multiple other issues from Hospital physician patient has a right middle lobe infiltrate patient is coughing unable to bring up anything patient admits to smoking one pack of cigarettes per day patient is presently on Rocephin and azithromycin unfortunately I do not have CBC available at this time patient doesn't have any fevers. Pro-calcitonin was ordered. Patient does have mildly elevated liver enzymes seconded alcoholic hepatitis. Patient does have an gap metabolic acidosis, lactic acid level is not available at this time. Patient does have ketones in the urine which appears to be starvation ketosis. Patient is on Ativan for withdrawals and the patient is also on IV fluids at this time. 09/28/2022 Patient is evaluated in follow up today on medical floor. He has sitter at the bedside secondary to acute agitation. He is currently resting in bed alert x2 and is noted to be having visual hallucinations at the time of assessment mid morning. He has no acute complaints. He has no tremors noted with arms extended. He has been receiving IV ativan per CIWA protocol and as well as oral librium QID. Patients CIWA score between 7 and 14. He had received 1 mg of ativan at 713 and 1 mg of ativan at 1017. He became agitated and CIWA score went up to 19, he was given 2 mg of IV ativan at 1140 and a Mr. Richards was called. A second 2 mg dose of ativan was ordered and a second Mr. Richards was called. Haldol was ordered. Patient was restrained. Patient was re-evaluated at the bedside by attending and discussed with vegetable preparer to upgrade to ICU. Patient's last documented CIWA was 30. Patient is now sedated and resting. He was placed on 2L of nasal cannula. He will be upgraded to ICU for closer monitoring. Patient remains on IV antibiotics for possible aspiration pneumonia. Potassium of 2.6 today and he is receiving IV supplementation. His LFT's are improving. 09/29/2022 Patient continues to be monitored in the intensive care unit. He had chest xray completed this AM showing minimal left pleural effusion. Left infiltrate has resolved mostly. He continues on CIWA protocol requiring IV ativan and oral librium QID. Oxygen saturation is low this am 87% on room air. Review of Systems Constitutional: Denied any fatigue denied any fever. Cardio vascular: denied any chest pain, palpitations Gastrointestinal: denied any nausea, vomiting. Reports episode of diarrhea Pulmonary: Denied any shortness of breath cough Neurologic denied any new focal deficits All inpatient medications were reviewed and appropriate changes in these medications as dictated in the interval history and assessment and plan. PHYSICAL EXAMINATION: GENERAL: The patient is alert and oriented x2, not in any acute distress. Well developed, well nourished. Patient is sleepy. HEENT: Pupils are round and equally reacting to light. EOMI. No scleral icterus. No conjunctival pallor. Normocephalic, atraumatic. No pharyngeal erythema. No thyromegaly. CARDIOVASCULAR: S1 and S2 present. No murmurs, rubs, or gallops. PULMONARY: Mild expiratory wheezing ABDOMEN: Soft, nontender, nondistended, normoactive bowel sounds. No palpable organomegaly. MUSCULOSKELETAL: No joint swelling or deformity. EXTREMITIES: No cyanosis, clubbing, or pedal edema. NEUROLOGICAL: Gross neurological examination did not reveal any focal deficits. SKIN: No rashes. Assessment and plan Assessment Plan -Acute alcohol withdrawal -Acute alcoholic hepatitis -Mildly elevated lipase secondary to chronic alcoholism nonspecific elevation will be trended -Right middle lobe infiltrate, community acquired pneumonia vs. aspiration pneumonia; patient reports his PCP prescribing oral antibiotics outpatient but he never picked them up. Procalcitonin level 0.26, his white count is normal. -History of hypertension, resumed on home metoprolol and losartan decreased to daily -Hypokalemia -Thrombocytopenia secondary to chronic alcoholism -Chronic alcohol abuse -Nicotine dependence -Anxiety/Depresion DVT prophylaxis: Lovenox GI prophylaxis: Protonix Plan Plan to transfer patient out of ICU today Continue ativan CIWA protocol Electrolyte replacement and follow up labs The impression and plan of care has been dictated by Lola Cortez Nurse Practitioner as directed. Dr. Zuly MD I have performed a history and physical examination and medical decision making of this patient, discussed the same with the dictator, and agree with the dictators assessment and plan as written, documented as a scribe. Based on total visit time, I have performed more than 50% of this visit. Objective - Vital Signs Vital signs: Vital Signs Temp 98.0 F 09/29/22 04:00 Pulse 107 H 09/29/22 07:00 Resp 17 09/29/22 07:00 BP 149/98 09/29/22 07:00 Pulse Ox 87 L 09/29/22 07:00 FiO2 21 09/28/22 08:45 Intake & Output 09/28/22 09/29/22 09/29/22 18:59 06:59 18:59 Intake Total 375 1225 75 Output Total 0 2410 125 Balance 375 -1185 -50 Weight 89.9 kg Intake: IV 825 75 Sodium Chloride 0.9% 1, 825 75 000 ml @ 75 mls/hr IV . [id number] [facility] Rx#:[id number] Intake, IV Titration 375 400 Amount Potassium Chloride 10 meq 300 400 In Water For Injection 1 100ml.bag @ 100 mls/hr IVPB Q1HR [facility] Rx#: [id number] Sodium Chloride 0.9% 1, 75 000 ml @ 75 mls/hr IV . [id number] [facility] Rx#:[id number] Output: Urine 0 2410 125 Other: Voiding Method External Catheter Indwelling Catheter # Bowel Movements 1 - Labs CBC & Chem 7: 09/29/22 05:38 09/29/22 12:27 Labs: Abnormal Lab Results - Last 24 Hours (Table) 09/28/22 09/28/22 09/28/22 Range/Units 06:08 06:08 06:08 WBC 4.07 L (4.50-10.00) X 10*3/uL Hct (39.0-53.0) % RDW 16.5 H (11.5-14.5) % Plt Count 24 L (140-440) X 10*3/uL Immature Plt Fraction 19.5 H (1.1-6.1) % Sodium (137-145) mmol/L Potassium 2.6 L* (3.5-5.5) mmol/L Chloride 92 L (96-109) mmol/L Carbon Dioxide 29.2 H (20.0-27.5) mmol/L BUN 6.7 L (9.0-27.0) mg/dL Creatinine (0.66-1.25) mg/dL BUN/Creatinine Ratio 10.18 L (12.00-20.00) Ratio Glucose (74-99) mg/dL Calcium (8.4-10.2) mg/dL Magnesium (1.6-2.3) mg/dL AST 144 H (14-35) U/L ALT 77 H (10-49) U/L Alkaline Phosphatase 155 H (41-126) U/L Total Protein (6.3-8.2) g/dL Albumin (3.5-5.0) g/dL Lipase 135 H (14-60) U/L 09/29/22 09/29/22 09/29/22 Range/Units 01:02 05:38 05:38 WBC (4.50-10.00) X 10*3/uL Hct 37.8 L (39.0-53.0) % RDW 16.2 H (11.5-14.5) % Plt Count 30 L (140-440) X 10*3/uL Immature Plt Fraction (1.1-6.1) % Sodium 135 L (137-145) mmol/L Potassium 3.2 L 3.0 L (3.5-5.5) mmol/L Chloride 97 L (96-109) mmol/L Carbon Dioxide 31 H (20.0-27.5) mmol/L BUN (9.0-27.0) mg/dL Creatinine 0.56 L (0.66-1.25) mg/dL BUN/Creatinine Ratio (12.00-20.00) Ratio Glucose 124 H (74-99) mg/dL Calcium 8.3 L (8.4-10.2) mg/dL Magnesium 1.4 L (1.6-2.3) mg/dL AST 146 H (14-35) U/L ALT 77 H (10-49) U/L Alkaline Phosphatase (41-126) U/L Total Protein 5.9 L (6.3-8.2) g/dL Albumin 3.4 L (3.5-5.0) g/dL Lipase (14-60) U/L Microbiology - Last 24 Hours (Table) 09/26/22 20:00 Blood Culture - Preliminary Blood No Growth after 48 hours 09/26/22 19:50 Blood Culture - Preliminary Blood No Growth after 48 hours Assessment and Plan Time with Patient: Less than 30
[2022-09-29] MEDS: LOSARTAN 25 MG TAB PO SCH (20:16)
[2022-09-29] MEDS ORDERED: QUEtiapine 25 MG TAB PO SCH (21:00)
[2022-09-30] MEDS: POTASSIUM CHLORIDE ER 20 MEQ TAB.ER PO SCH ×2 (03:59→05:07)
[2022-09-30] MEDS: SODIUM CHLORIDE 0.9% 1,000 ML IV SCH (05:56)
[2022-09-30 07:31] VITALS: BP 131/82; PULSE 84; RESP 18; TEMP 97.9
[2022-09-30] MEDS: LORazepam 2 MG/ML INJ IV PRN (08:48)
[2022-09-30] MEDS: ENOXAPARIN 40 MG/0.4 ML SYRINGE SQ SCH (10:06)
[2022-09-30] MEDS: FOLIC ACID 1 MG TAB PO SCH (10:07)
[2022-09-30] MEDS: METOPROLOL TARTRATE 50 MG TAB PO SCH (10:08)
[2022-09-30] MEDS: chlordiazePOXIDE 25 MG CAP PO SCH ×2 (10:08→13:27)
[2022-09-30] MEDS: NICOTINE 21MG/24HR PATCH TRANSDERM SCH (10:09)
[2022-09-30] MEDS: MULTIVITAMINS, THERA 1 EACH TAB PO SCH (10:09)
[2022-09-30] MEDS: THIAMINE 100 MG TAB PO SCH (10:09)
[2022-09-30] MEDS: LOSARTAN 25 MG TAB PO SCH (10:25)
[2022-09-30 11:21] LABS: Magnesium 1.8 mg/dL (1.5-2.4)
[2022-09-30 11:25] LABS: African American GFR (CKD) 158.2 (60.0-200.0); Albumin 3.6 g/dL (3.8-4.9); Albumin/Globulin Ratio 1.8 (1.60-3.17); Anion Gap 12.2 mmol/L (10.00-18.00); BUN/Creat Ratio 13.8 Ratio (12.00-20.00); Blood Urea Nitrogen 6.9 mg/dL (9.0-27.0); Calcium 8.4 mg/dL (8.7-10.3); Carbon Dioxide 24.8 mmol/L (20.0-27.5); Non-African American GFR(CKD) 136.5 (60.0-200.0); Potassium 3.6 mmol/L (3.5-5.5); Total Bilirubin 0.3 mg/dL (0.30-1.20); Total Protein 5.6 g/dL (6.2-8.2)
[2022-09-30 11:32] LABS: HCT 38.7 % (39.6-50.0); HGB 12.8 g/dL (13.0-17.0); MCH 27.9 pg (27.0-32.0); MCHC 33.1 g/dL (32.0-37.0); MCV 84.5 fL (80.0-97.0); Mean Platelet Volume 10.6 fL (9.5-12.2); NRBC Per 100 WBC 0 /100 WBCS (0.0-0.0); Platelet Count 48 X 10*3/uL (140-440); RBC 4.58 X 10*6/uL (4.40-5.60); RDW 16.2 % (11.5-14.5)
[2022-09-30 12:11] LABS: Basophils # (A) 0.05 X 10*3/uL (0.00-0.10); Basophils % (A) 1.3 %; Eosinophils # (A) 0.12 X 10*3/uL (0.04-0.35); Eosinophils % (A) 3.2 %; Immature Grans, Automated 0.5 %; Lymphocytes % (A) 39.5 %; Monocytes # (A) 0.38 X 10*3/uL (0.20-1.00); Neutrophils # (A) 1.73 X 10*3/uL (1.80-7.70); Neutrophils % (A) 45.5 %
[2022-09-30 12:12] LABS: Immature Platelet Fraction 13.5 % (1.1-6.1)
--- NOTE | 2022-09-30 12:29 | P.CN ---
Psychiatric Consult - . Consult date: 09/30/22 Consult:: 09/30/22 12:19 Patient was seen for a psychiatric consultation regarding his alcohol use and suicidal ideation. He was admitted to the hospital on 09/26/2022 since he was intoxicated on alcohol. Apparently he was withdrawing became violent requiring restraints. During this process apparently he reported that he was suicidal. He was seen sitting on his bed in the medical floor. He said he has been drinking alcohol since age 11 and had lost few jobs because of drinking and blacking out. He denies abusing other drugs. He said he was angry and made suicidal statements but he is not really suicidal anymore. He said he wants to see his children and apparently is not allowed because of his drinking. He was counseled to stay sober and work with his doctor, counselor and the system to get the privilege of seeing his children after staying sober for a while. This period of sobriety would depend on the legal requirements. He said he would work on it. He was also advised to seek outpatient counseling including AA meetings and going to islam and getting involved with the islam activities to stay sober. He said he will do that. This is an overweight white male who was seen sitting on his bed. He was polite calm and cooperative. He did not show any psychomotor agitation or retardation. His speech was spontaneous relevant and goal-directed. His mood was euthymic and became tearful when he was talking about his desire to be with his children and the difficulties he is having in seeing them. He denies hallucinations, delusional thinking, suicide and homicide thoughts. He wants to go back home look for in job and work on staying sober so that he can be with his children. He is well oriented with adequate memory concentration and general fund of knowledge. Diagnostic impression: Alcohol use disorder severe with recent intoxication. Recommendation: Patient was advised to seek outpatient alcohol counseling to attend AA meetings and become active in islam activities. Since he has good plan for the future and denies any thoughts of hurting himself he does not need to be watched for suicide risk people and can be discharged when medically clear with referral to alcohol counseling as an outpatient
--- NOTE | 2022-09-30 14:23 | P.PN ---
Subjective Progress Note Date: 09/30/22 This is a 57-year-old white male with history of alcoholism, patient drinks on the average of 2/5 of liquor every day. Patient was brought into the ER yesterday with mental status change and acute alcohol intoxication. Patient was admitted for alcohol withdrawal symptoms, and apparently on the floor he has been requiring a significant amount of medication to control his agitation is patient has been receiving Ativan, and Haldol. Not much history could obtain from the patient himself,, just received Haldol and Ativan, and there is a bedside sitter patient is in for point leather restraints. Apparently Mr. rg was called because of the severe agitation that the patient has demonstrated earlier. At any rate I was notified by his admitting physician/Dr. Caruso about this patient and about the difficulty controlling his agitation is on the floor, then I recommended the patient be transferred to the ICU for possible Precedex drip and to continue the CIWA protocol. Chest x-ray on admission showed a limited infiltrate in the right lower lobe consistent with pneumonia. Pro-calcitonin level was elevated at 0.26. His labs showed low potassium of 2.6. Drug screen on admission was negative. Looking back at this patient's previous admission back in 2020, he was admitted back then with new onset seizure and severe hypokalemia I'll call withdrawal symptoms, at that time the patient had to be placed on the CIWA protocol with Ativan and he was seen by psychiatry as well as neurology and cardiology on that last admission. Either later today on 09/29/2022, patient is in the ICU, he is not requiring any Precedex, he remains on the CIWA protocol, receives Ativan as needed. Patient is calm, not in distress, his IV fluid at 75 mL per hour, hence I plan to transfer the patient back to [address] [place] [id number] today. WBC count is 4.5 hemoglobin 13.1 electrolytes are normal except for low potassium of 3.0 being addressed, renal profile is normal.pro calcitonin level is 0.26 on this admission, patient remains empirically on antibiotics for presumptive pneumonia The patient is seen today 09/30/2022 in follow-up on the regular medical floor. He is sitting up in bed. Awake and alert in no acute distress. He is calm and comfortable. He is cooperative. He denies any shortness of breath, cough or congestion. No worsening shortness of breath. Denies any hallucinations. White count 3.8. Hemoglobin 12.8. Platelets 48,000. Sodium 142. Potassium 3.6. Bicarb 25. BUN 7. Creatinine 0.5. AST 100. ALT 81. Blood cultures revealed no growth. He remains in the [facility] protocol. Objective - Vital Signs Vital signs: Vital Signs Temp 97.9 F 09/30/22 06:55 Pulse 84 09/30/22 06:55 Resp 18 09/30/22 06:55 BP 131/82 09/30/22 06:55 Pulse Ox 97 09/30/22 06:55 FiO2 21 09/28/22 08:45 Intake & Output 09/29/22 09/30/22 09/30/22 18:59 06:59 18:59 Intake Total 225 900 Output Total 275 Balance -50 900 Intake: IV 225 900 Sodium Chloride 0.9% 1, 225 900 000 ml @ 75 mls/hr IV . [id number] [facility] Rx#:[id number] Output: Urine 275 Other: Voiding Method Indwelling Catheter Toilet Toilet # Voids 1 - Exam GENERAL EXAM: Alert, calm, cooperative 37-year-old male, on room air, comfortable in no apparent distress. HEAD: Normocephalic. EYES: Normal reaction of pupils, equal size. NOSE: Clear with pink turbinates. THROAT: No erythema or exudates. NECK: No masses, no JVD. CHEST: No chest wall deformity. LUNGS: Equal air entry with no crackles, wheeze, rhonchi or dullness. CVS: S1 and S2 normal with no audible murmur, regular rhythm. ABDOMEN: No hepatosplenomegaly, normal bowel sounds, no guarding or rigidity. SPINE: No scoliosis or deformity SKIN: No rashes CENTRAL NERVOUS SYSTEM: No focal deficits, tone is normal in all 4 extremities. EXTREMITIES: There is no peripheral edema. No clubbing, no cyanosis. Peripheral pulses are intact. - Labs CBC & Chem 7: 09/30/22 07:47 09/30/22 07:47 Labs: Abnormal Lab Results - Last 24 Hours (Table) 09/29/22 09/30/22 09/30/22 Range/Units 18:24 07:47 07:47 WBC 3.80 L (4.50-10.00) X 10*3/uL Hgb 12.8 L (13.0-17.0) g/dL Hct 38.7 L (39.6-50.0) % RDW 16.2 H (11.5-14.5) % Plt Count 48 L (140-440) X 10*3/uL Plt Count Comment A Neutrophils # 1.73 L (1.80-7.70) X 10*3/uL Immature Plt Fraction 13.5 H (1.1-6.1) % Potassium 3.4 L (3.5-5.1) mmol/L BUN 6.9 L (9.0-27.0) mg/dL Creatinine 0.5 L (0.6-1.5) mg/dL Calcium 8.4 L (8.7-10.3) mg/dL AST 100 H (14-35) U/L ALT 81 H (10-49) U/L Total Protein 5.6 L (6.2-8.2) g/dL Albumin 3.6 L (3.8-4.9) g/dL Microbiology - Last 24 Hours (Table) 09/26/22 20:00 Blood Culture - Preliminary Blood No Growth after 72 hours 09/26/22 19:50 Blood Culture - Preliminary Blood No Growth after 72 hours Assessment and Plan Assessment: Acute alcohol withdrawal Acute alcoholic hepatitis Right lower lobe pneumonia could be community-acquired pneumonia or could be aspiration pneumonia, patient is noted to have elevated pro calcitonin level Benign essential hypertension Previous history of seizures, may or may not be alcohol withdrawal related Plan: The patient was seen and evaluated Medications and labs reviewed Cleared for discharge from the pulmonary standpoint Stable and on room air Completely 5 day course of Augmentin Psychiatric evaluation pending I have personally seen and examined the patient, performed the documentation and the assessment and plan as written. Number of minutes spent on the visit: 10.
--- NOTE | 2022-09-30 15:50 | P.DS ---
Providers Date of admission: 09/26/22 19:03 Attending physician: Arnulfo Mg Consults: 09/28/22 14:05 Consult Physician Routine Consulting Provider: Lisa Moe Consult Reason/Comments: ETOH withdrawal Do you want consulting provider notified?: Yes 09/29/22 14:26 Consult Physician Routine Consulting Provider: Isaac Bruno Consult Reason/Comments: ETOH, suicide ideation Do you want consulting provider notified?: Yes Primary care physician: Mary Chacon Hospital Course: Final Diagnosis -Acute alcohol withdrawal resolved. -Acute alcoholic hepatitis improving. -Mildly elevated lipase secondary to chronic alcoholism improved. -Right middle lobe infiltrate, community acquired pneumonia vs. aspiration pneumonia; patient reports his PCP prescribing oral antibiotics outpatient but he never picked them up. Procalcitonin level 0.26, his white count is normal. -History of hypertension -Hypokalemia improved -Thrombocytopenia secondary to chronic alcoholism -Chronic alcohol abuse -Nicotine dependence -Anxiety/Depresion Full Code Plan Patient cleared for discharge home. Patient is recommended for total alcohol cessation and patient verbalizes a desire to quit drinking. Patient is dischar ged on oral librium taper. He is recommended to complete a 5 day course of oral augmentin. Patient discharged on combination of multivitamin, thiamine, folic acid, magnesium supplementation. Cleared by psychiatry for discharge. Hospital Course This is a 37-year-old male admitted for alcohol withdrawal patient admits to drinking about 2 fifths of liquor every day patient is presently undergoing w ithdrawals and shaking on admission. Patient denied any previous history of seizures, he has gone to rehab in the past for alcohol cessation. Patient is a 1 pack per day smoker. Intial work up reveals a right middle lobe infiltrate patient is coughing unable to bring up anything. States his PCP had sent in oral antibiotics with concern for pneumonia but he had never picked them up. his procalcitonin was 0.26. Patient does have mildly elevated liver enzymes secondary to alcoholic hepatitis. His platelet count was low on admission. Patient does have an gap metabolic acidosis on admission as well. Patient does have ketones in the urine which appears to be starvation ketosis. Patient is admitted to the hospital for monitoring and acute alcohol withdrawal he was monitored on the medical floor. He did become confused and agitated requiring sedation and restraint. He had sitter at the bedside. He was transferred to the ICU for close monitoring and had improved. Patient was downgraded to the medical floor. His chest xray yesterday is showing minimal left pleural effusion. He is now alert x 3 oriented and able to converse appropriately. He has been up ambulating. He is on room air. He is tolerating diet. He has been followed by pulmonary animal handler and also underwent psychiatric evaluation and was cleared for discharge. 09/30/2022 Patient is evaluated today sitting up in bed he does have sitter at the bedside. He was evaluated by psychiatry and cleared for DC home and recommending outpatient rehabilitation services. Patient is denying suicidal ideations. He does express a desire to quit drinking. He is alert x 3 today and ambulating around the room. He does have an intermittent cough, but no fever or chills. He denies shortness of breath as well. His lungs are essentially clear. He has no white count. His platelet count has improved to 48. His sodium is 142, potassium 36, BUN 6.9, creatinine 0.5, magnesium 1.8. AST 100, ALT 81 and alk phos is normal. He is afebrile, heart rate 84, blood pressure 131/82, 97% on room air. Please see medication reconciliation for a list of current medications. Thank you for allowing us to participate in the care of this patient. The impression and plan of care has been dictated by Lola Cortez, Nurse Practitioner as directed. Dr. Zuly MD I have performed a history and physical examination and medical decision making of this patient, discussed the same with the dictator, and agree with the dictators assessment and plan as written, documented as a scribe. Based on total visit time, I have performed more than 50% of this visit. Patient Condition at Discharge: Stable Plan - Discharge Summary Discharge Rx Participant: No New Discharge Prescriptions: New Amoxic-Pot Clav 875-125Mg [Augmentin 875-125] 1 each PO Q12HR 7 Days #14 tab Folic Acid 1 mg PO DAILY #30 tab Pantoprazole [Protonix] 40 mg PO DAILY #30 tab chlordiazePOXIDE HCl [Librium] 25 mg PO DIRECTED 6 Days #12 cap Multivitamins, Thera [Multivitamin (formulary)] 1 each PO DAILY #30 tab Thiamine [Vitamin B-1] 100 mg PO DAILY #30 tab Magnesium Oxide [Mag-Ox] 400 mg PO DAILY #15 tablet Continue Metoprolol Tartrate [Lopressor] 100 mg PO BID Losartan Potassium [Cozaar] 25 mg PO BID Discharge Medication List Losartan Potassium [Cozaar] 25 mg PO BID 07/21/20 [History] Metoprolol Tartrate [Lopressor] 100 mg PO BID 07/21/20 [History] Amoxic-Pot Clav 875-125Mg [Augmentin 875-125] 1 each PO Q12HR 7 Days #14 tab 09/30/22 [Rx] Folic Acid 1 mg PO DAILY #30 tab 09/30/22 [Rx] Magnesium Oxide [Mag-Ox] 400 mg PO DAILY #15 tablet 09/30/22 [Rx] Multivitamins, Thera [Multivitamin (formulary)] 1 each PO DAILY #30 tab 09/30/22 [Rx] Pantoprazole [Protonix] 40 mg PO DAILY #30 tab 09/30/22 [Rx] Thiamine [Vitamin B-1] 100 mg PO DAILY #30 tab 09/30/22 [Rx] chlordiazePOXIDE HCl [Librium] 25 mg PO DIRECTED 6 Days #12 cap 09/30/22 [Rx] Follow up Appointment(s)/Referral(s): Mary Chacon MD [Primary Care Provider] - 1-2 days (Office closed at time od discharge. Please make own follow-up appt. ) Ambulatory/Diagnostic Orders: Comprehensive Metabolic Panel [LAB.AMB] Time Frame: 3 Days, Location: None Selected Patient Instructions/Handouts: Chlordiazepoxide (By mouth), Thiamine (By mouth), Amoxicillin/Clavulanate Potassium (By mouth), Folic Acid (By mouth), Multivitamins, Adult Formula (By mouth), Pantoprazole (By mouth), Magnesium (By mouth), How to Stop Smoking (DC), Alcohol Intoxication (ED), Abuse of Alcohol (ED), Alcohol Withdrawal (ED) Discharge/Stand Alone Forms: AA Meetings [facility] - [facility], AA Meetings [place], Outpatient Counseling, Inp Substance Abuse Facilities Discharge Disposition: HOME SELF-CARE
[2022-10-01] MEDS ORDERED: AMOXIC-POT CLAV 875-125MG 1 EACH TAB PO SCH (09:00)
== END 2022-09-30 13:55 | disposition home or self-care (01) | DRG 775 ==
LOC: EC 16:03 → 4SSUR 19:03 → 2SICU 09-28 15:19 → 5NMEDONC 09-29 15:13
PROVIDERS: ADMIT Internal Medicine; ATTEND Internal Medicine
DX: F10.229 Alcohol dependence with intoxication, unspecified (principal); J69.0 Pneumonitis due to inhalation of food and vomit; E87.29 Other acidosis; R45.851 Suicidal ideations; F10.239 Alcohol dependence with withdrawal, unspecified; K70.10 Alcoholic hepatitis without ascites; D69.59 Other secondary thrombocytopenia; Z28.310 Unvaccinated for COVID-19; E87.6 Hypokalemia; F32.A Depression, unspecified; K92.1 Melena; E86.0 Dehydration; I10 Essential (primary) hypertension; F41.9 Anxiety disorder, unspecified; F17.210 Nicotine dependence, cigarettes, uncomplicated; R74.8 Abnormal levels of other serum enzymes; Z79.899 Other long term (current) drug therapy; Z71.41 Alcohol abuse counseling and surveillance of alcoholic; Z71.6 Tobacco abuse counseling; Z78.1 Physical restraint status
CPT/HCPCS: 36415; 71045; 71046; 80053; 80306; 81001; 82075; 82140; 83690; 83735; 84100; 84132; 84145; 85025; 85027; 85610; 87040; 94640; 96361; 96365; 96367; 96368; 96375; 96376; 99285

== ENCOUNTER 2024-01-06 16:00 | Inpatient (IN) | payer OTHER ==
--- NOTE | 2024-01-06 16:26 | ED ---
General Adult HPI - General Chief complaint: Alcohol Stated complaint: Hallucinations Time Seen by Provider: 01/06/24 16:04 Source: EMS Mode of arrival: EMS Limitations: no limitations - History of Present Illness Initial comments: Dictation was produced using [employer] dictation software. please excuse any grammatical, word or spelling errors. Chief Complaint: 38-year-old male presents to the ER for altered mental status History of Present Illness: Patient is a 38-year-old male he was brought here from [facility]. Patient is not exactly sure why he is here. According to [facility] facility documentation patient was transferred here for having auditory hallucinations. Patient states that his last alcohol intake was 2 days prior when he initially checked in. Patient denies any complaints. Patient states he drinks approximately 1/5 of liquor daily. Patient has reportedly had to be hospitalized for alcohol withdrawals in the past. The ROS documented in this emergency department record has been reviewed and confirmed by me. Those systems with pertinent positive or negative responses have been documented in the HPI. All other systems are other negative and/or noncontributory. - Related Data Home Medications Medication Instructions Recorded Confirmed Losartan Potassium [Cozaar] 25 mg PO BID 07/21/20 09/26/22 Metoprolol Tartrate [Lopressor] 100 mg PO BID 07/21/20 09/26/22 Previous Rx's Medication Instructions Recorded Amoxic-Pot Clav 875-125Mg 1 each PO Q12HR 7 Days #14 tab 09/30/22 [Augmentin 875-125] Folic Acid 1 mg PO DAILY #30 tab 09/30/22 Magnesium Oxide [Mag-Ox] 400 mg PO DAILY #15 tablet 09/30/22 Multivitamins, Thera [Multivitamin 1 each PO DAILY #30 tab 09/30/22 (formulary)] Pantoprazole [Protonix] 40 mg PO DAILY #30 tab 09/30/22 Thiamine [Vitamin B-1] 100 mg PO DAILY #30 tab 09/30/22 chlordiazePOXIDE HCl [Librium] 25 mg PO DIRECTED 6 Days #12 cap 09/30/22 Allergies Allergy/AdvReac Type Severity Reaction Status Date / Time No Known Allergies Allergy Verified 01/06/24 16:09 Review of Systems ROS Statement: Those systems with pertinent positive or pertinent negative responses have been documented in the HPI. ROS Other: All systems not noted in ROS Statement are negative. Past Medical History Past Medical History: Hypertension History of Any Multi-Drug Resistant Organisms: None Reported Past Surgical History: No Surgical Hx Reported Past Psychological History: Anxiety, Depression Smoking Status: Current every day smoker Past Alcohol Use History: Daily, Heavy Past Drug Use History: None Reported General Exam - General Exam Comments Initial Comments: PHYSICAL EXAM: General Impression: Alert and oriented x3, not in acute distress HEENT: Normocephalic atraumatic, extra-ocular movements intact, pupils equal and reactive to light bilaterally, mucous membranes moist. Cardiovascular: Heart regular rate and rhythm Chest: Able to complete full sentences, no retractions, no tachypnea Abdomen: abdomen soft, non-tender, non-distended, no organomegaly Musculoskeletal: Pulses present and equal in all extremities, no peripheral edema Motor: no focal deficits noted Neurological: CN II-XII grossly intact, no focal motor or sensory deficits noted Skin: Intact with no visualized rashes Psych: Normal affect and mood Limitations: no limitations Course Vital Signs 01/06/24 16:03 Temperature 98.4 F Pulse Rate 65 Respiratory 18 Rate Blood Pressure 175/135 O2 Sat by Pulse 95 Oximetry EKG Findings - EKG Comments: EKG Findings:: My EKG interpretation: Ventricular rate 55, sinus rhythm with bradycardia,. 141, cures 106, QTc 4 3. No IA prolongation, no QTC prolongation, no ST or T-wave changes noted. . Overall, this EKG is unremarkable Medical Decision Making - Medical Decision Making Was pt. sent in by a medical professional or institution (, PA, CEMENT LOADER, urgent care, hospital, or skilled nursing...) When possible be specific @ -No Did you speak to anyone other than the patient for history (EMS, parent, family, police, friend...)? What history was obtained from this source @ -No Did you review nursing and triage notes (agree or disagree)? Why? @ -I reviewed and agree with nursing and triage notes Were old charts reviewed (outside hosp., previous admission, EMS record, old EKG, old radiological studies, urgent care reports/EKG's, skilled nursing records)? Report findings @ -No old charts were reviewed Differential Diagnosis (chest pain, altered mental status, abdominal pain women, abdominal pain men, vaginal bleeding, musculoskeletal, weakness, fever, dyspnea, syncope, headache, dizziness, GI bleed, back pain, seizure, CVA, palpatations, mental health)? @ -Differential Altered Mental Status: Hypoglycemia, DKA, hypercapnia, ETOH, overdose, CO poisoning, trauma, myxedema coma, HTN encephalopathy, infection, encephalitis, psychosis, intercranial hemorrhage, hepatic encephalopathy, meningitis, CVA, this is not meant to be an all-inclusive list EKG interpreted by me (3pts min.). @ -See above X-rays interpreted by me (1pt min.). @ -None done CT interpreted by me (1pt min.). @ -CT scan the brain shows no acute processes U/S interpreted by me (1pt. min.). @ -None done What testing was considered but not performed or refused? (CT, X-rays, U/S, labs)? Why? @ -None What meds were considered but not given or refused? Why? @ -None Was smoking cessation discussed for >3mins.? @ -No Were there social determinants of health that impacted care today? How? (Homelessness, low income, unemployed, alcoholism, drug addiction, transportation, low edu. Level, literacy, decrease access to med. care, assisted, rehab)? @ -No Was there de-escalation of care discussed even if they declined (Discuss DNR or withdrawal of care, Hospice)? DNR status @ -No What co-morbidities impacted this encounter? (DM, HTN, Smoking, COPD, CAD, Cancer, CVA, ARF, Chemo, Hep., AIDS, mental health diagnosis, sleep apnea, morbid obesity)? @ -None Was patient admitted / discharged? Hospital course, mention meds given and route, prescriptions, significant lab abnormalities, [facility]. @ -38-year-old male presents emergency department from [facility]. Is currently detoxing from alcohol. His last alcohol intake was 48 hours ago. Patient apparently brought here for mental status changes. Patient alert and oriented x 4. Laboratory evaluation is within acceptable limits. Alcohol is negative. Nurse did report to me that after I walked out of the room he did have some visual hallucinations. Patient given Ativan. Will be admitted for inpatient management of EtOH withdrawal. Did you discuss the management of the patient with other professionals (boogie nguyen i.e. , PA, CEMENT LOADER, lab, RT, psych nurse, social human services assistants, cad cam programmer, teacher, targeting acquisition officer, medical case worker)? Give summary @ -No Was critical care preformed (if so, how long)? @ -No Undiagnosed new problem with uncertain prognosis? @ -No Drug Therapy requiring intensive monitoring for toxicity (Heparin, Nitro, Insulin, Cardizem)? @ -No Were any procedures done? @ -No Diagnosis/symptom? Acute, or Chronic, or Acute on Chronic? Uncomplicated (without systemic symptoms) or Complicated (systemic symptoms)? @ -Alcohol withdrawal Side effects of treatment? @ -No Exacerbation, Progression, or Severe Exacerbation? @ -No Poses a threat to life or bodily function? How? (Chest pain, [place], [place], pneumonia, PE, COPD, DKA, ARF, appy, cholecystitis, CVA, Diverticulitis, Homicidal, Suicidal, threat to staff... and all critical care pts) @ -yes - Lab Data Result diagrams: 01/06/24 16:24 01/06/24 16:24 Lab Results 01/06/24 01/06/24 01/06/24 Range/Units 16:24 16:24 16:24 WBC 4.2 (3.8-10.6) k/uL RBC 4.32 (4.30-5.90) m/uL Hgb 14.6 (13.0-17.5) gm/dL Hct 43.3 (39.0-53.0) % MCV 100.3 H (80.0-100.0) fL MCH 33.7 (25.0-35.0) pg MCHC 33.6 (31.0-37.0) g/dL RDW 14.9 (11.5-15.5) % Plt Count 115 L (150-450) k/uL MPV 8.8 Neutrophils % 45 % Lymphocytes % 41 % Monocytes % 6 % Eosinophils % 4 % Basophils % 1 % Neutrophils # 1.9 (1.3-7.7) k/uL Lymphocytes # 1.7 (1.0-4.8) k/uL Monocytes # 0.3 (0-1.0) k/uL Eosinophils # 0.2 (0-0.7) k/uL Basophils # 0.1 (0-0.2) k/uL Macrocytosis Slight PT 10.9 (10.0-12.5) sec INR 1.0 (<1.2) APTT 23.4 (22.0-30.0) sec Sodium 137 (137-145) mmol/L Potassium 3.2 L (3.5-5.1) mmol/L Chloride 104 (98-107) mmol/L Carbon Dioxide 26 (22-30) mmol/L Anion Gap 7 mmol/L BUN 9 (9-20) mg/dL Creatinine 0.57 L (0.66-1.25) mg/dL Est GFR (CKD-EPI)AfAm >90 (>60 ml/min/1.73 sqM) Est GFR (CKD-EPI)NonAf >90 (>60 ml/min/1.73 sqM) Glucose 112 H (74-99) mg/dL Calcium 10.3 H (8.4-10.2) mg/dL Magnesium 1.4 L (1.6-2.3) mg/dL Total Bilirubin 0.7 (0.2-1.3) mg/dL AST 56 (17-59) U/L ALT 33 (4-49) U/L Alkaline Phosphatase 115 (38-126) U/L Total Protein 7.0 (6.3-8.2) g/dL Albumin 4.4 (3.5-5.0) g/dL Serum Alcohol <10 mg/dL Blood Type Blood Type Confirm Blood Type Recheck Bld Type Recheck Status Antibody Screen Spec Expiration Date 01/06/24 01/06/24 Range/Units 16:24 16:34 WBC (3.8-10.6) k/uL RBC (4.30-5.90) m/uL Hgb (13.0-17.5) gm/dL Hct (39.0-53.0) % MCV (80.0-100.0) fL MCH (25.0-35.0) pg MCHC (31.0-37.0) g/dL RDW (11.5-15.5) % Plt Count (150-450) k/uL MPV Neutrophils % % Lymphocytes % % Monocytes % % Eosinophils % % Basophils % % Neutrophils # (1.3-7.7) k/uL Lymphocytes # (1.0-4.8) k/uL Monocytes # (0-1.0) k/uL Eosinophils # (0-0.7) k/uL Basophils # (0-0.2) k/uL Macrocytosis PT (10.0-12.5) sec INR (<1.2) APTT (22.0-30.0) sec Sodium (137-145) mmol/L Potassium (3.5-5.1) mmol/L Chloride (98-107) mmol/L Carbon Dioxide (22-30) mmol/L Anion Gap mmol/L BUN (9-20) mg/dL Creatinine (0.66-1.25) mg/dL Est GFR (CKD-EPI)AfAm (>60 ml/min/1.73 sqM) Est GFR (CKD-EPI)NonAf (>60 ml/min/1.73 sqM) Glucose (74-99) mg/dL Calcium (8.4-10.2) mg/dL Magnesium (1.6-2.3) mg/dL Total Bilirubin (0.2-1.3) mg/dL AST (17-59) U/L ALT (4-49) U/L Alkaline Phosphatase (38-126) U/L Total Protein (6.3-8.2) g/dL Albumin (3.5-5.0) g/dL Serum Alcohol mg/dL Blood Type AB Positive Blood Type Confirm AB Positive Blood Type Recheck No Previous Record Bld Type Recheck Status CABO Indicated Antibody Screen NEGATIVE Spec Expiration Date 01/09/20242333 Disposition Clinical Impression: Alcohol withdrawal Disposition: ADMITTED IP TO THIS [facility] Condition: Fair Referrals: Mary Chacon MD [Primary Care Provider] - 1-2 days Decision Time: 18:05
[2024-01-06 16:44] LABS: Basophils # (A) 0.1 k/uL (0-0.2); Basophils % (A) 1 %; Eosinophils # (A) 0.2 k/uL (0-0.7); Eosinophils % (A) 4 %; HCT 43.3 % (39.0-53.0); HGB 14.6 gm/dL (13.0-17.5); Lymphocytes # (A) 1.7 k/uL (1.0-4.8); Lymphocytes % (A) 41 %; MCH 33.7 pg (25.0-35.0); MCHC 33.6 g/dL (31.0-37.0); MCV 100.3 fL (80.0-100.0); Macrocytosis Slight; Mean Platelet Volume 8.8; Monocytes # (A) 0.3 k/uL (0-1.0); Monocytes % (A) 6 %; Neutrophils # (A) 1.9 k/uL (1.3-7.7); Neutrophils % (A) 45 %; Platelet Count 115 k/uL (150-450); RBC 4.32 m/uL (4.30-5.90); RDW 14.9 % (11.5-15.5); WBC 4.2 k/uL (3.8-10.6)
[2024-01-06 16:51] LABS: Partial Thromboplastin Time 23.4 sec (22.0-30.0); Prothrombin Time 10.9 sec (10.0-12.5)
[2024-01-06 17:10] LABS: ALT 33 U/L (4-49); AST 56 U/L (17-59); African American GFR (CKD) >90 (>60 ml/min/1.73 sqM); Albumin 4.4 g/dL (3.5-5.0); Alcohol <10 mg/dL; Alkaline Phosphatase 115 U/L (38-126); Anion Gap 7 mmol/L; Blood Urea Nitrogen 9 mg/dL (9-20); Calcium 10.3 mg/dL (8.4-10.2); Carbon Dioxide 26 mmol/L (22-30); Chloride 104 mmol/L (98-107); Glucose 112 mg/dL (74-99); Magnesium 1.4 mg/dL (1.6-2.3); Non-African American GFR(CKD) >90 (>60 ml/min/1.73 sqM); Potassium 3.2 mmol/L (3.5-5.1); Sodium 137 mmol/L (137-145); Total Bilirubin 0.7 mg/dL (0.2-1.3)
--- NOTE | 2024-01-06 17:50 | CT ---
EXAMINATION TYPE: CT brain wo con DATE OF EXAM: 01/06/2024 COMPARISON: CT 07/21/2020 HISTORY: seizure CT DLP: 1158.2 mGycm. Automated Exposure Control for Dose Reduction was Utilized. TECHNIQUE: CT scan of the head is performed without contrast. FINDINGS: The calvarium is intact. There is no intracranial hemorrhage. There is no intracranial mass or mass effect. No definite new intra-axial or extra-axial attenuation defect. The paranasal sinuses, middle ear cavities, and mastoid sinus air cells are clear. The orbits are unremarkable. IMPRESSION: No acute process.
[2024-01-06] MEDS ORDERED: NALOXONE 0.4 MG/ML 1 ML VIAL IV PRN (18:02)
[2024-01-06] MEDS: SODIUM CHLORIDE 0.9% 1,000 ML IV SCH (18:08)
[2024-01-06] MEDS: LORazepam 2 MG/ML INJ IV STA (18:09)
[2024-01-06] MEDS: LORazepam 2 MG/ML INJ IV PRN ×2 (19:50→20:50)
[2024-01-06] MEDS: ZIPRASIDONE 20 MG VIAL IM STA (21:31)
--- NOTE | 2024-01-06 21:42 | ED ---
Medical Decision Making - Lab Data Result diagrams: 01/06/24 16:24 01/06/24 16:24 Lab Results 01/06/24 01/06/24 01/06/24 Range/Units 16:24 16:24 16:24 WBC 4.2 (3.8-10.6) k/uL RBC 4.32 (4.30-5.90) m/uL Hgb 14.6 (13.0-17.5) gm/dL Hct 43.3 (39.0-53.0) % MCV 100.3 H (80.0-100.0) fL MCH 33.7 (25.0-35.0) pg MCHC 33.6 (31.0-37.0) g/dL RDW 14.9 (11.5-15.5) % Plt Count 115 L (150-450) k/uL MPV 8.8 Neutrophils % 45 % Lymphocytes % 41 % Monocytes % 6 % Eosinophils % 4 % Basophils % 1 % Neutrophils # 1.9 (1.3-7.7) k/uL Lymphocytes # 1.7 (1.0-4.8) k/uL Monocytes # 0.3 (0-1.0) k/uL Eosinophils # 0.2 (0-0.7) k/uL Basophils # 0.1 (0-0.2) k/uL Macrocytosis Slight PT 10.9 (10.0-12.5) sec INR 1.0 (<1.2) APTT 23.4 (22.0-30.0) sec Sodium 137 (137-145) mmol/L Potassium 3.2 L (3.5-5.1) mmol/L Chloride 104 (98-107) mmol/L Carbon Dioxide 26 (22-30) mmol/L Anion Gap 7 mmol/L BUN 9 (9-20) mg/dL Creatinine 0.57 L (0.66-1.25) mg/dL Est GFR (CKD-EPI)AfAm >90 (>60 ml/min/1.73 sqM) Est GFR (CKD-EPI)NonAf >90 (>60 ml/min/1.73 sqM) Glucose 112 H (74-99) mg/dL Calcium 10.3 H (8.4-10.2) mg/dL Magnesium 1.4 L (1.6-2.3) mg/dL Total Bilirubin 0.7 (0.2-1.3) mg/dL AST 56 (17-59) U/L ALT 33 (4-49) U/L Alkaline Phosphatase 115 (38-126) U/L Total Protein 7.0 (6.3-8.2) g/dL Albumin 4.4 (3.5-5.0) g/dL Serum Alcohol <10 mg/dL Blood Type Blood Type Confirm Blood Type Recheck Bld Type Recheck Status Antibody Screen Spec Expiration Date 01/06/24 01/06/24 Range/Units 16:24 16:34 WBC (3.8-10.6) k/uL RBC (4.30-5.90) m/uL Hgb (13.0-17.5) gm/dL Hct (39.0-53.0) % MCV (80.0-100.0) fL MCH (25.0-35.0) pg MCHC (31.0-37.0) g/dL RDW (11.5-15.5) % Plt Count (150-450) k/uL MPV Neutrophils % % Lymphocytes % % Monocytes % % Eosinophils % % Basophils % % Neutrophils # (1.3-7.7) k/uL Lymphocytes # (1.0-4.8) k/uL Monocytes # (0-1.0) k/uL Eosinophils # (0-0.7) k/uL Basophils # (0-0.2) k/uL Macrocytosis PT (10.0-12.5) sec INR (<1.2) APTT (22.0-30.0) sec Sodium (137-145) mmol/L Potassium (3.5-5.1) mmol/L Chloride (98-107) mmol/L Carbon Dioxide (22-30) mmol/L Anion Gap mmol/L BUN (9-20) mg/dL Creatinine (0.66-1.25) mg/dL Est GFR (CKD-EPI)AfAm (>60 ml/min/1.73 sqM) Est GFR (CKD-EPI)NonAf (>60 ml/min/1.73 sqM) Glucose (74-99) mg/dL Calcium (8.4-10.2) mg/dL Magnesium (1.6-2.3) mg/dL Total Bilirubin (0.2-1.3) mg/dL AST (17-59) U/L ALT (4-49) U/L Alkaline Phosphatase (38-126) U/L Total Protein (6.3-8.2) g/dL Albumin (3.5-5.0) g/dL Serum Alcohol mg/dL Blood Type AB Positive Blood Type Confirm AB Positive Blood Type Recheck No Previous Record Bld Type Recheck Status CABO Indicated Antibody Screen NEGATIVE Spec Expiration Date 01/09/2024 - 2333 Disposition Clinical Impression: Alcohol withdrawal Disposition: ADMITTED IP TO THIS [facility] Condition: Fair Procedures - Restraint - Face to Face Restraint Occurrence 1 Patient's Immediate Situation: Endangers self safety, Endangers others' safety Patient's Reaction to the Intervention: Hostile, Anxious Patient's Medical & Behavioral Condition: Alert, Agitated Need to Continue or Terminate Restraint or Seclusion: Continue Face to Face Eval of Restraint Date: 01/06/24 Face to Face Eval of Restraint Time: 21:15
[2024-01-06] MEDS: hydrALAZINE HCL 20 MG/ML 1 ML VIAL IVP PRN (22:50)
[2024-01-07] MEDS: LORazepam 2 MG/ML INJ IV PRN (08:06)
--- NOTE | 2024-01-07 09:37 | P.HPIM ---
History of Present Illness H&P Date: 01/07/24 Perfecto Lan, is a 38-year-old male who presented to [facility] emergency room with a chief complaint of altered mental status, apparently patient was at [facility], he started having auditory hallucinations, his last alcohol intake was 2 days prior to presentation, patient had previous admission with alcohol withdrawal, he was hospitalized in our hospital in September 2022 with alcohol withdrawal symptoms. He was evaluated in the emergency room vital examination on presentation revealed a temperature of 98.4 pulse 65 respiration 18 blood pressure 175/135 pulse ox 95% on room air Laboratory data reveals a white blood count of 4.2 hemoglobin 14.6 platelet count 115 sodium 137 potassium 3.2 chloride 104 CO2 26 BUN 9 creatinine 0.57 glucose 112 AST 56 ALT 33 Testing in the emergency room revealed CT scan of the brain without contrast was done in the emergency room and revealed no acute process, EKG was done in the emergency room and revealed sinus bradycardia with sinus arrhythmia with incomplete right bundle branch block. Patient was admitted to medical floor for further evaluation and treatment Past medical history is significant for history of hypertension, history of depression with anxiety, history of alcohol abuse, with previous admission to the hospital with alcohol withdrawal symptoms, history of tobacco abuse On review of systems at this time patient is somnolent arousable in no apparent distress, however he had episodes of agitation in the emergency room requiring restraints and 24-hour sitter. Past Medical History Past Medical History: Hypertension History of Any Multi-Drug Resistant Organisms: None Reported Past Surgical History: No Surgical Hx Reported Past Psychological History: Anxiety, Depression Smoking Status: Current every day smoker Past Alcohol Use History: Daily, Heavy Past Drug Use History: None Reported Medications and Allergies Home Medications Medication Instructions Recorded Confirmed Type Thiamine [Vitamin B-1] 100 mg PO DAILY #30 tab 09/30/22 01/06/24 Rx Acetaminophen Tab [Tylenol] 650 mg PO Q4H 01/06/24 01/06/24 History Calcium/Magnesium/Zinc/Vitamin D 1 tab PO TID PRN 01/06/24 01/06/24 History Chlorpheniramine Maleate 4 mg PO Q4H PRN 01/06/24 01/06/24 History [Chlor-Trimeton] Ibuprofen [Motrin Ib] 600 mg PO Q6H PRN 01/06/24 01/06/24 History LORazepam [Ativan] 1 - 2 mg PO Q4-6H PRN 01/06/24 01/06/24 History Loperamide HCl [Imodium A-D] 4 mg PO QID PRN 01/06/24 01/06/24 History Lorazepam 2mg/Ml 1 - 2 mg IM Q4H PRN 01/06/24 01/06/24 History Melatonin 10 mg PO HS 01/06/24 01/06/24 History Metoprolol Tartrate [Lopressor] 25 mg PO ONETIME 01/06/24 01/06/24 History Multivitamins, Thera [Multivitamin 1 tab PO DAILY 01/06/24 01/06/24 History (formulary)] Mylanta 30 ml PO Q4H PRN 01/06/24 01/06/24 History cloNIDine HCL [Catapres] 0.1 - 0.3 mg PO Q4H PRN 01/06/24 01/06/24 History ondansetron HCL [Zofran] 8 mg PO Q6H PRN 01/06/24 01/06/24 History traZODone HCL [Desyrel] 50 - 150 mg PO HS PRN 01/06/24 01/06/24 History Allergies Allergy/AdvReac Type Severity Reaction Status Date / Time No Known Allergies Allergy Verified 01/06/24 18:17 Physical Exam Vitals: Vital Signs Temp Pulse Pulse Resp BP BP Pulse Ox 01/07/24 08:00 88 20 138/88 97 01/07/24 06:20 135/78 01/07/24 05:45 98.1 F 95 21 199/102 98 01/07/24 04:30 68 18 141/98 96 01/07/24 04:00 80 18 138/87 94 L 01/07/24 03:30 64 18 143/73 96 01/07/24 01:30 58 L 18 141/92 96 01/07/24 01:00 82 21 153/83 94 L 01/07/24 00:49 100 18 151/103 95 01/07/24 00:00 90 21 166/107 93 L 01/06/24 22:00 84 17 193/157 95 01/06/24 20:31 78 18 184/130 96 01/06/24 19:32 90 17 195/140 01/06/24 18:08 62 18 194/125 96 07/12/24 16:03 98.4 F 65 18 175/135 95 Intake and Output 01/06/24 01/07/24 01/07/24 22:59 06:59 14:59 Other: Weight 101.605 kg In general patient is alert and oriented x 3 in no distress HEENT head normocephalic and atraumatic Neck is supple no JVD no goiter no lymphadenopathy no carotid bruit Chest examination is clear to auscultation no crackles no wheezing Cardiac exam reveals regular heart sounds S1 and S2 no gallops no murmurs Abdomen is soft nontender no organomegaly with normal bowel sounds Extremity exam reveals no edema no cyanosis or clubbing Neurological examination reveals no gross focal deficits Results CBC & Chem 7: 01/06/24 16:24 01/06/24 16:24 Labs: Abnormal Lab Results - Last 24 Hours (Table) 01/06/24 01/06/24 Range/Units 16:24 16:24 MCV 100.3 H (80.0-100.0) fL Plt Count 115 L (150-450) k/uL Potassium 3.2 L (3.5-5.1) mmol/L Creatinine 0.57 L (0.66-1.25) mg/dL Glucose 112 H (74-99) mg/dL Calcium 10.3 H (8.4-10.2) mg/dL Magnesium 1.4 L (1.6-2.3) mg/dL Assessment and Plan Plan: Acute alcohol withdrawal Hypertension with hypertensive emergency Auditory hallucination Underlying history of depression with anxiety At this time patient was seen and examined Home medications reviewed and reordered IV hydralazine added for elevated blood pressure Metoprolol succinate 25 mg p.o. daily was added to medication regimen Patient was started on CIWA protocol in the emergency room For DVT prophylaxis subcu Lovenox For GI prophylaxis p.o. Protonix Psychiatry consultation requested Will follow closely
[2024-01-07 10:15] LABS: ALT 31 U/L (4-49); AST 51 U/L (17-59); African American GFR (CKD) >90 (>60 ml/min/1.73 sqM); Albumin 3.9 g/dL (3.5-5.0); Alkaline Phosphatase 98 U/L (38-126); Anion Gap 6 mmol/L; Blood Urea Nitrogen 8 mg/dL (9-20); Calcium 9.2 mg/dL (8.4-10.2); Carbon Dioxide 27 mmol/L (22-30); Chloride 106 mmol/L (98-107); Glucose 95 mg/dL (74-99); Magnesium 1.4 mg/dL (1.6-2.3); Non-African American GFR(CKD) >90 (>60 ml/min/1.73 sqM); Sodium 139 mmol/L (137-145); Total Bilirubin 0.9 mg/dL (0.2-1.3); Total Protein 6.6 g/dL (6.3-8.2)
[2024-01-07] MEDS: METOPROLOL SUCCINATE (ER) 25 MG TAB.ER.24H PO SCH (11:05)
[2024-01-07] MEDS: MULTIVITAMINS, THERA 1 EACH TAB PO SCH (11:05)
[2024-01-07] MEDS: THIAMINE 100 MG TAB PO SCH (11:05)
[2024-01-07] MEDS: PANTOPRAZOLE 40 MG TABLET PO SCH (11:06)
--- NOTE | 2024-01-07 13:28 | P.CN ---
Psychiatric Consult - . Consult date: 01/07/24 Consult:: 01/07/24 13:20 Patient Name: Perfecto Lan Date of : 81 Patient Status: Inpatient Attending Provider: Arnulfo Mg Date: 01/07/24 Initialization Date: 01/07/24 08:57 This is a psychiatric assessment on Perfecto lan who is a 38-year-old male with a long history of alcohol use disorder [facility] with a chief complaint of altered mental status, apparently patient was at [facility], he started having auditory hallucinations, his last alcohol intake was 2 days prior to presentation, patient had previous admission with alcohol withdrawal, he was hospitalized in our hospital in September 2022 with alcohol withdrawal symptoms. He was evaluated in the emergency room vital examination on presentation revealed a temperature of 98.4 pulse 65 respiration 18 blood pressure 175/135 pulse ox 95% on room air Laboratory data reveals a white blood count of 4.2 hemoglobin 14.6 platelet count 115 sodium 137 potassium 3.2 chloride 104 CO2 26 BUN 9 creatinine 0.57 glucose 112 AST 56 ALT 33 Testing in the emergency room revealed CT scan of the brain without contrast was done in the emergency room and revealed no acute process, EKG was done in the emergency room and revealed sinus bradycardia with sinus arrhythmia with incomplete right bundle branch block. Patient was admitted to medical floor for further evaluation and treatment The patient had been experiencing withdrawal symptoms and had expressed concern that the sneed were moving the nursing staff had reported that the patient was placed in room where there was a fluttering temporary screen which most likely gave an illusion of sneed moving Patient also admits that for a while he thought that someone was out to get him or hurt him Patient now denies that he has any intention of harming himself or others He denies that he is seeing or hearing things Patient denies experiencing any significant withdrawal symptoms in the past and states that he is gone through 1 detox program about a year ago He states that he currently lives with his father and 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 He states that he drinks alcohol 1/5 a day and occasionally uses cannabis He denies any other substance use He denies any history of any withdrawal seizures Patient denies any significant past psychiatric follow-up or treatments Denies going to any mental health services or taking any antidepressants or anxiety medications Mental status examination: Reveals a heavyset male who presents with a disheveled appearance patient has matted hair and unkept appearance He appears to be slightly tremulous Patient however able to interact appropriately although intermittently he seems to have some inappropriate comments that were unrelated to the questions asked Affect at this time remains that of mild anxiety Thought process however remained goal directed sequential and logical patient denies any suicidal or homicidal ideations Patient denies any thoughts of wanting to hurt himself or others Formal operational judgment and insight remains concrete Diagnostic impression: Adjustment disorder with anxiety features Mood disorder most likely related to alcohol use Alcohol use disorder chronic Cannabis use disorder unspecified Plan: The patient at this time does not meet the criteria for inpatient psychiatric hospitalization The patient at this time is currently hospitalized for detox from severe and chronic alcohol use Patient appears to have some perceptual distortions and mild paranoia most likely related to alcohol withdrawal symptoms and impairing DTs Would recommend continuation of detox treatment. Patient seems to be responding Patient was offered antipsychotic medication at this time which he declined Will follow this patient along with you Thank you very much for your kind referral and please feel free to contact me if you have any further questions Scooter Hook MD
[2024-01-07] MEDS ORDERED: Potassium Replacement Protocol 1 EACH MISC MISCELLANE PRN (17:27)
[2024-01-07] MEDS ORDERED: Magnesium Replacement Protocol 1 EACH MISC MISCELLANE PRN (17:27)
[2024-01-07] MEDS: MAGNESIUM SULFATE-D5W PMX 1 GM in DEXTROSE/WATER 1 100ML.BAG IVPB SCH (17:55)
[2024-01-07] MEDS: POTASSIUM CHLORIDE ER 20 MEQ TAB.ER PO STA (17:55)
[2024-01-07] MEDS: traZODone HCL 50 MG TAB PO PRN (22:10)
[2024-01-08 07:38] LABS: Basophils # (A) 0.1 k/uL (0-0.2); Basophils % (A) 1 %; Eosinophils # (A) 0.2 k/uL (0-0.7); Eosinophils % (A) 3 %; HGB 15.1 gm/dL (13.0-17.5); Lymphocytes # (A) 2.1 k/uL (1.0-4.8); Lymphocytes % (A) 40 %; MCH 34.3 pg (25.0-35.0); MCHC 33.6 g/dL (31.0-37.0); MCV 102.1 fL (80.0-100.0); Macrocytosis Slight; Mean Platelet Volume 8.5; Monocytes # (A) 0.4 k/uL (0-1.0); Monocytes % (A) 7 %; Neutrophils # (A) 2.5 k/uL (1.3-7.7); Neutrophils % (A) 47 %; Platelet Count 138 k/uL (150-450); RDW 15.3 % (11.5-15.5); WBC 5.3 k/uL (3.8-10.6)
[2024-01-08 07:51] LABS: ALT 28 U/L (4-49); AST 42 U/L (17-59); African American GFR (CKD) >90 (>60 ml/min/1.73 sqM); Albumin 4.2 g/dL (3.5-5.0); Alkaline Phosphatase 109 U/L (38-126); Anion Gap 7 mmol/L; Blood Urea Nitrogen 12 mg/dL (9-20); Calcium 9.1 mg/dL (8.4-10.2); Carbon Dioxide 23 mmol/L (22-30); Chloride 108 mmol/L (98-107); Glucose 94 mg/dL (74-99); Magnesium 1.8 mg/dL (1.6-2.3); Non-African American GFR(CKD) >90 (>60 ml/min/1.73 sqM); Potassium 3.2 mmol/L (3.5-5.1); Sodium 138 mmol/L (137-145); Total Bilirubin 0.9 mg/dL (0.2-1.3); Total Protein 6.9 g/dL (6.3-8.2)
[2024-01-08] MEDS: ENOXAPARIN 40 MG/0.4 ML SYRINGE SQ SCH (07:53)
[2024-01-08] MEDS ORDERED: Potassium Replacement Protocol 1 EACH MISC MISCELLANE PRN (09:56)
--- NOTE | 2024-01-08 09:57 | P.PN ---
Subjective Progress Note Date: 01/08/24 Perfecto Lan, is a 38-year-old male who presented to [facility] emergency room with a chief complaint of altered mental status, apparently patient was at [facility], he started having auditory hallucinations, his last alcohol intake was 2 days prior to presentation, patirossy vega had previous admission with alcohol withdrawal, he was hospitalized in our hospital in September 2022 with alcohol withdrawal symptoms. He was evaluated in the emergency room vital examination on presentation revealed a temperature of 98.4 pulse 65 respiration 18 blood pressure 175/135 pulse ox 95% on room air Laboratory data reveals a white blood count of 4.2 hemoglobin 14.6 platelet count 115 sodium 137 potassium 3.2 chloride 104 CO2 26 BUN 9 creatinine 0.57 glucose 112 AST 56 ALT 33 Testing in the emergency room revealed CT scan of the brain without contrast was done in the emergency room and revealed no acute process, EKG was done in the emergency room and revealed sinus bradycardia with sinus arrhythmia with incomplete right bundle branch block. Patient was admitted to medical floor for further evaluation and treatment Past medical history is significant for history of hypertension, history of depression with anxiety, history of alcohol abuse, with previous admission to the hospital with alcohol withdrawal symptoms, history of tobacco abuse On review of systems at this time patient is somnolent arousable in no apparent distress, however he had episodes of agitation in the emergency room requiring restraints and 24-hour sitter. On 01/08/2024 patient is currently resting comfortably in bed. Still requiring Ativan for alcohol withdrawal. Patient was evaluated by psychiatry services. At this time patient does not meet criteria for inpatient psych admission continue detox recommendations. Potassium low at 3.2 replace per protocol. Current vital signs Temp 98.5, heart rate 97, respiratory rate 19, blood pressure 132/89 with a pulse ox of 96% on room air Objective - Vital Signs Vital signs: Vital Signs Temp 98.1 F 01/08/24 08:00 Pulse 106 H 01/08/24 08:00 Resp 18 01/08/24 08:00 BP 132/89 01/08/24 08:00 Pulse Ox 96 01/08/24 08:00 FiO2 Intake & Output 01/07/24 01/08/24 01/08/24 18:59 06:59 18:59 Intake Total 120 480 118 Output Total 300 Balance -180 480 118 Weight 101.2 kg Intake: Oral 120 480 118 Output: Urine 300 Other: Voiding Method Toilet # Voids 1 - Exam In general patient is alert and oriented x 3 in no distress HEENT head normocephalic and atraumatic Neck is supple no JVD no goiter no lymphadenopathy no carotid bruit Chest examination is clear to auscultation no crackles no wheezing Cardiac exam reveals regular heart sounds S1 and S2 no gallops no murmurs Abdomen is soft nontender no organomegaly with normal bowel sounds Extremity exam reveals no edema no cyanosis or clubbing Neurological examination reveals no gross focal deficits - Labs CBC & Chem 7: 01/08/24 07:21 01/08/24 07:21 Labs: Abnormal Lab Results - Last 24 Hours (Table) 01/07/24 01/08/24 01/08/24 Range/Units 09:43 07:21 07:21 MCV 102.1 H (80.0-100.0) fL Plt Count 138 L (150-450) k/uL Potassium 3.0 L 3.2 L (3.5-5.1) mmol/L Chloride 108 H (98-107) mmol/L BUN 8 L (9-20) mg/dL Creatinine 0.44 L 0.56 L (0.66-1.25) mg/dL Magnesium 1.4 L (1.6-2.3) mg/dL Assessment and Plan Plan: Acute alcohol withdrawal Hypertension with hypertensive emergency Auditory hallucination Underlying history of depression with anxiety At this time patient was seen and examined Home medications reviewed and reordered IV hydralazine added for elevated blood pressure Metoprolol succinate 25 mg p.o. daily was added to medication regimen Patient was started on CIWA protocol in the emergency room For DVT prophylaxis subcu Lovenox For GI prophylaxis p.o. Protonix Psychiatry consultation requested Will follow closely
[2024-01-08] MEDS: POTASSIUM CHLORIDE ER 20 MEQ TAB.ER PO SCH (11:56)
[2024-01-08] MEDS: ACETAMINOPHEN TAB 325 MG TAB PO PRN (15:55)
[2024-01-09 03:48] LABS: Basophils % (A) 1 %; Eosinophils # (A) 0.2 k/uL (0-0.7); Eosinophils % (A) 5 %; HCT 42.1 % (39.0-53.0); HGB 14.1 gm/dL (13.0-17.5); Lymphocytes % (A) 44 %; MCH 34.1 pg (25.0-35.0); MCHC 33.4 g/dL (31.0-37.0); MCV 102.3 fL (80.0-100.0); Macrocytosis Slight; Mean Platelet Volume 8.6; Monocytes # (A) 0.4 k/uL (0-1.0); Monocytes % (A) 8 %; Neutrophils # (A) 1.9 k/uL (1.3-7.7); Neutrophils % (A) 40 %; Platelet Count 118 k/uL (150-450); RBC 4.12 m/uL (4.30-5.90); RDW 15.2 % (11.5-15.5); WBC 4.7 k/uL (3.8-10.6)
[2024-01-09 04:04] LABS: ALT 25 U/L (4-49); AST 37 U/L (17-59); African American GFR (CKD) >90 (>60 ml/min/1.73 sqM); Albumin 3.9 g/dL (3.5-5.0); Alkaline Phosphatase 101 U/L (38-126); Anion Gap 7 mmol/L; Blood Urea Nitrogen 12 mg/dL (9-20); Calcium 9.4 mg/dL (8.4-10.2); Carbon Dioxide 22 mmol/L (22-30); Chloride 109 mmol/L (98-107); Glucose 97 mg/dL (74-99); Non-African American GFR(CKD) >90 (>60 ml/min/1.73 sqM); Potassium 3.4 mmol/L (3.5-5.1); Sodium 138 mmol/L (137-145); Total Bilirubin 0.7 mg/dL (0.2-1.3); Total Protein 6.5 g/dL (6.3-8.2)
[2024-01-09] MEDS: POTASSIUM CHLORIDE ER 20 MEQ TAB.ER PO SCH (04:14)
[2024-01-09] MEDS: LOSARTAN 50 MG TAB PO SCH (10:25)
--- NOTE | 2024-01-09 17:22 | P.PN ---
Subjective Progress Note Date: 01/09/24 Perfecto Lan, is a 38-year-old male who presented to [facility] emergency room with a chief complaint of altered mental status, apparently patient was at [facility], he started having auditory hallucinations, his last alcohol intake was 2 days prior to presentation, mary vega had previous admission with alcohol withdrawal, he was hospitalized in our hospital in September 2022 with alcohol withdrawal symptoms. He was evaluated in the emergency room vital examination on presentation revealed a temperature of 98.4 pulse 65 respiration 18 blood pressure 175/135 pulse ox 95% on room air Laboratory data reveals a white blood count of 4.2 hemoglobin 14.6 platelet count 115 sodium 137 potassium 3.2 chloride 104 CO2 26 BUN 9 creatinine 0.57 glucose 112 AST 56 ALT 33 Testing in the emergency room revealed CT scan of the brain without contrast was done in the emergency room and revealed no acute process, EKG was done in the emergency room and revealed sinus bradycardia with sinus arrhythmia with incomplete right bundle branch block. Patient was admitted to medical floor for further evaluation and treatment Past medical history is significant for history of hypertension, history of depression with anxiety, history of alcohol abuse, with previous admission to the hospital with alcohol withdrawal symptoms, history of tobacco abuse On review of systems at this time patient is somnolent arousable in no apparent distress, however he had episodes of agitation in the emergency room requiring restraints and 24-hour sitter. On 01/08/2024 patient is currently resting comfortably in bed. Still requiring Ativan for alcohol withdrawal. Patient was evaluated by psychiatry services. At this time patient does not meet criteria for inpatient psych admission continue detox recommendations. Potassium low at 3.2 replace per protocol. Current vital signs Temp 98.5, heart rate 97, respiratory rate 19, blood pressure 132/89 with a pulse ox of 96% on room air On 01/09/2024 patient was seen and examined on the medical floor he is alert and oriented x 3 in no apparent distress, he continues to have elevated blood pressure, he is still having significant anxiety and requiring IV Ativan, patient was counseled in length today, he was started on Librium 20 mg p.o. 4 times daily as needed, dose of losartan increased to 100 mg daily, possible discharge to home tomorrow if stable. Objective - Vital Signs Vital signs: Vital Signs Temp 97.8 F 01/09/24 12:04 Pulse 94 01/09/24 15:14 Resp 16 01/09/24 12:04 BP 150/98 01/09/24 15:14 Pulse Ox 94 L 01/09/24 15:14 FiO2 Intake & Output 01/08/24 01/09/24 01/09/24 18:59 06:59 18:59 Intake Total 452 Balance 452 Intake: Oral 452 Other: Voiding Method Toilet Toilet # Voids 3 - Exam In general patient is alert and oriented x 3 in no distress HEENT head normocephalic and atraumatic Neck is supple no JVD no goiter no lymphadenopathy no carotid bruit Chest examination is clear to auscultation no crackles no wheezing Cardiac exam reveals regular heart sounds S1 and S2 no gallops no murmurs Abdomen is soft nontender no organomegaly with normal bowel sounds Extremity exam reveals no edema no cyanosis or clubbing Neurological examination reveals no gross focal deficits - Labs CBC & Chem 7: 01/09/24 02:49 01/09/24 07:29 Labs: Abnormal Lab Results - Last 24 Hours (Table) 01/09/24 01/09/24 Range/Units 02:49 02:49 RBC 4.12 L (4.30-5.90) m/uL MCV 102.3 H (80.0-100.0) fL Plt Count 118 L (150-450) k/uL Potassium 3.4 L (3.5-5.1) mmol/L Chloride 109 H (98-107) mmol/L Creatinine 0.50 L (0.66-1.25) mg/dL Assessment and Plan Plan: Acute alcohol withdrawal Hypertension with hypertensive emergency Auditory hallucination Underlying history of depression with anxiety At this time patient was seen and examined Home medications reviewed and reordered IV hydralazine added for elevated blood pressure Metoprolol succinate 25 mg p.o. daily was added to medication regimen Patient was started on CIWA protocol in the emergency room For DVT prophylaxis subcu Lovenox For GI prophylaxis p.o. Protonix Psychiatry consultation requested Will follow closely
[2024-01-10 07:43] VITALS: RESP 16
[2024-01-10] MEDS: LOSARTAN 50 MG TAB PO SCH (09:11)
--- NOTE | 2024-01-10 10:57 | P.DS ---
Providers Date of admission: 01/06/24 18:03 Expected date of discharge: 01/10/24 Attending physician: Arnulfo Mg Consults: 01/07/24 09:35 Consult Physician Routine Consulting Provider: Isaac Bruno Consult Reason/Comments: Hallucinations, agitation, alcohol withdrawal, underlying depression with a Do you want consulting provider notified?: Yes Primary care physician: Mary Chacon [facility] Course: Discharge diagnosis Acute alcohol withdrawal Hypertension with hypertensive emergency Auditory hallucination Underlying history of depression with anxiety Hospital course Perfecto Lan, is a 38-year-old male who presented to [facility] emergency room with a chief complaint of altered mental status, apparently patient was at [facility], he started having auditory hallucinations, his last alcohol intake was 2 days prior to presentation, patient had previous admission with alcohol withdrawal, he was hospitalized in our hospital in September 2022 with alcohol withdrawal symptoms. He was evaluated in the emergency room vital examination on presentation revealed a temperature of 98.4 pulse 65 respiration 18 blood pressure 175/135 pulse ox 95% on room air Laboratory data reveals a white blood count of 4.2 hemoglobin 14.6 platelet count 115 sodium 137 potassium 3.2 chloride 104 CO2 26 BUN 9 creatinine 0.57 glucose 112 AST 56 ALT 33 Testing in the emergency room revealed CT scan of the brain without contrast was done in the emergency room and revealed no acute process, EKG was done in the emergency room and revealed sinus bradycardia with sinus arrhythmia with incomplete right bundle branch block. Patient was admitted to medical floor for further evaluation and treatment Past medical history is significant for history of hypertension, history of depression with anxiety, history of alcohol abuse, with previous admission to the hospital with alcohol withdrawal symptoms, history of tobacco abuse On review of systems at this time patient is somnolent arousable in no apparent distress, however he had episodes of agitation in the emergency room requiring restraints and 24-hour sitter. On 01/08/2024 patient is currently resting comfortably in bed. Still requiring Ativan for alcohol withdrawal. Patient was evaluated by psychiatry services. At this time patient does not meet criteria for inpatient psych admission continue detox recommendations. Potassium low at 3.2 replace per protocol. Current vital signs Temp 98.5, heart rate 97, respiratory rate 19, blood pressure 132/89 with a pulse ox of 96% on room air On 01/09/2024 patient was seen and examined on the medical floor he is alert and oriented x 3 in no apparent distress, he continues to have elevated blood pressure, he is still having significant anxiety and requiring IV Ativan, patient was counseled in length today, he was started on Librium 20 mg p.o. 4 ti mes daily as needed, dose of losartan increased to 100 mg daily, possible discharge to home tomorrow if stable. On 01/10/2024 patient is alert and oriented x 3. Patient reports he feels ready to be DC'd home. Patient will be DC'd on as needed Librium. Patient also started on Hyzaar and Lopressor for better blood pressure control. Patient to follow-up with PCP. Patient educated on the importance of complete alcohol cessation. Patient denies any resources services at this time. Patient denies chest pain or shortness of breath. Patient denies nausea vomiting or diarrhea. Patient denies any urinary burning or frequency Patient Condition at Discharge: Stable Plan - Discharge Summary Discharge Rx Participant: Yes New Discharge Prescriptions: New Losartan-Hctz 50-12.5 mg [Hyzaar 50-12.5] 2 each PO DAILY 30 Days #60 tab Metoprolol Succinate (ER) [Toprol XL] 50 mg PO DAILY 30 Days #30 tab Continue Mylanta 30 ml PO Q4H PRN PRN Reason: Gi Upset ondansetron HCL [Zofran] 8 mg PO Q6H PRN PRN Reason: Nausea Melatonin 10 mg PO HS cloNIDine HCL [Catapres] 0.1 - 0.3 mg PO Q4H PRN PRN Reason: bp greater than 160/100 Thiamine [Vitamin B-1] 100 mg PO DAILY #30 tab traZODone HCL [Desyrel] 50 - 150 mg PO HS PRN PRN Reason: Insomnia Acetaminophen Tab [Tylenol] 650 mg PO Q4H Multivitamins, Thera [Multivitamin (formulary)] 1 tab PO DAILY Ibuprofen [Motrin Ib] 600 mg PO Q6H PRN PRN Reason: Pain Loperamide HCl [Imodium A-D] 4 mg PO QID PRN PRN Reason: Constipation Calcium/Magnesium/Zinc/Vitamin D 1 tab PO TID PRN PRN Reason: muscle cramps Discontinued Metoprolol Tartrate [Lopressor] 25 mg PO ONETIME Chlorpheniramine Maleate [Chlor-Trimeton] 4 mg PO Q4H PRN PRN Reason: Allergy Symptoms Lorazepam 2mg/Ml 1 - 2 mg IM Q4H PRN PRN Reason: Alcohol Withdrawal LORazepam [Ativan] 1 - 2 mg PO Q4-6H PRN PRN Reason: Alcohol Withdrawal Discharge Medication List Thiamine [Vitamin B-1] 100 mg PO DAILY #30 tab 09/30/22 [Rx] Acetaminophen Tab [Tylenol] 650 mg PO Q4H 01/06/24 [History] Calcium/Magnesium/Zinc/Vitamin D 1 tab PO TID PRN 01/06/24 [History] Ibuprofen [Motrin Ib] 600 mg PO Q6H PRN 01/06/24 [History] Loperamide HCl [Imodium A-D] 4 mg PO QID PRN 01/06/24 [History] Melatonin 10 mg PO HS 01/06/24 [History] Multivitamins, Thera [Multivitamin (formulary)] 1 tab PO DAILY 01/06/24 [History] Mylanta 30 ml PO Q4H PRN 01/06/24 [History] cloNIDine HCL [Catapres] 0.1 - 0.3 mg PO Q4H PRN 01/06/24 [History] ondansetron HCL [Zofran] 8 mg PO Q6H PRN 01/06/24 [History] traZODone HCL [Desyrel] 50 - 150 mg PO HS PRN 01/06/24 [History] Losartan-Hctz 50-12.5 mg [Hyzaar 50-12.5] 2 each PO DAILY 30 Days #60 tab 01/10/24 [Rx] Metoprolol Succinate (ER) [Toprol XL] 50 mg PO DAILY 30 Days #30 tab 01/10/24 [Rx] Follow up Appointment(s)/Referral(s): Mary Chacon MD [Primary Care Provider] - 1-2 days
[2024-01-10 11:09] LABS: ALT 25 U/L (10-49); AST 31 U/L (14-35); Albumin 4.2 g/dL (3.8-4.9); Albumin/Globulin Ratio 1.75 Ratio (1.60-3.17); Alkaline Phosphatase 108 U/L (41-126); Blood Urea Nitrogen 8.4 mg/dL (9.0-27.0); Calcium 9.1 mg/dL (8.7-10.3); Carbon Dioxide 25.3 mmol/L (21.6-31.8); Chloride 107 mmol/L (96-109); Globulin 2.4 g/dL (1.6-3.3); Glucose 106 mg/dL (70-110); Potassium 3.7 mmol/L (3.5-5.5); Sodium 142 mmol/L (135-145); Total Bilirubin 0.5 mg/dL (0.3-1.2); Total Protein 6.6 g/dL (6.2-8.2)
[2024-01-10 11:10] LABS: Basophils # (A) 0.08 X 10*3/uL (0.00-0.10); Basophils % (A) 1.4 %; Eosinophils # (A) 0.19 X 10*3/uL (0.04-0.35); Eosinophils % (A) 3.3 %; HCT 42.6 % (39.6-50.0); HGB 14.6 g/dL (13.0-17.0); Lymphocytes # (A) 1.95 X 10*3/uL (0.90-5.00); Lymphocytes % (A) 33.9 %; MCH 34.4 pg (27.0-32.0); MCHC 34.3 g/dL (32.0-37.0); MCV 100.5 FL (80.0-97.0); Mean Platelet Volume 11.2 FL (9.5-12.2); Monocytes # (A) 0.58 X 10*3/uL (0.20-1.00); Monocytes % (A) 10.1 %; NRBC Per 100 WBC 0 X 10*3/uL (0.00-0.01); Neutrophils # (A) 2.93 X 10*3/uL (1.80-7.70); Platelet Count 148 X 10*3/uL (140-440); RBC 4.24 X 10*6/uL (4.40-5.60); RDW 14.6 % (11.5-14.5); WBC 5.75 X 10*3/uL (4.50-10.00)
[2024-01-10] MEDS: hydroCHLOROthiazide 25 MG TAB PO ONE (12:01)
[2024-01-10] MEDS: METOPROLOL SUCCINATE (ER) 25 MG TAB.ER.24H PO ONE (12:01)
[2024-01-10 12:51] VITALS: TEMP 98.3
[2024-01-10 13:50] VITALS: BP 141/90; PULSE 93
[2024-01-11] MEDS ORDERED: METOPROLOL SUCCINATE (ER) 50 MG TAB.ER.24H PO SCH (09:00)
[2024-01-11] MEDS ORDERED: LOSARTAN-HCTZ 50-12.5 MG 1 EACH TAB PO SCH (09:00)
== END 2024-01-10 13:56 | disposition home or self-care (01) | DRG 897 ==
LOC: EC 16:00 → 4SSUR 18:03 → 3SCARD 01-07 04:16 → 5NMEDONC 01-09 00:20
PROVIDERS: ADMIT Internal Medicine; ATTEND Internal Medicine
PROC: HZ2ZZZZ Detoxification Services for Substance Abuse Treatment (ICD-10-PCS; principal; 2024-01-06)
DX: F10.239 Alcohol dependence with withdrawal, unspecified (principal); R44.0 Auditory hallucinations; I16.1 Hypertensive emergency; R45.1 Restlessness and agitation; I10 Essential (primary) hypertension; F43.22 Adjustment disorder with anxiety; F32.A Depression, unspecified; F17.200 Nicotine dependence, unspecified, uncomplicated; R00.1 Bradycardia, unspecified; F12.10 Cannabis abuse, uncomplicated; F39 Unspecified mood [affective] disorder; Z78.1 Physical restraint status; Z28.310 Unvaccinated for COVID-19; Z71.41 Alcohol abuse counseling and surveillance of alcoholic
CPT/HCPCS: 36415; 70450; 80053; 80320; 83735; 84132; 85025; 85610; 85730; 86850; 86900; 86901; 93005; 96361; 96372; 96374; 96375; 96376; 99285